=== PATIENT | female | born 1970 | race American Indian/Alaskan Native ===

== ENCOUNTER 2018-05-24 14:58 | Inpatient (IN) | payer MEDICAID, MEDICARE ==
--- NOTE | 2018-05-24 15:08 | Emergency Department Report ---
ED Neuro Deficit HPI - General Chief Complaint: Neuro Symptoms/Deficit Stated Complaint: STROKE Time Seen by Provider: 05/24/18 15:07 Source: patient, EMS (verbal report received from EMS.ems notes not available at time of chart dictation), RN notes reviewed Mode of arrival: Stretcher Limitations: Physical Limitation - History of Present Illness Initial Comments: This is a 47-year-old female. The patient is not known to this provider previously. The patient is brought to the hospital by emergency medical services as a possible code stroke. Patient's last known well time is 2:00 PM. Stroke symptoms include left arm weakness, left leg weakness, and left-sided numbness. Symptoms painless, constant, do not radiate anywhere, and do not have exacerbating or relieving factors. The patient reports that she is not and initially reported that she was not sure if she took systemic anticoagulation, and after some time, indicated that she is quite certain that she only takes aspirin, but otherwise, no obvious or other systemic anticoagulants. The patient denied contraindications to thrombolysis. The patient was admitted to another hospital last week, [facility], and reportedly had a negative MRI. Upon arrival to the emergency room, patient is found to have left arm weakness, left leg weakness, and decreased sensation to light touch, NIH score of 5. Code stroke called overhead, and CT scan of the brain was interpreted as negative for bleed. Patient interviewed by telephone neurology stroke specialist, Dr. Thomas Mendez. He independently was able to acquire the aforementioned [facility] MRI interpretation. He agreed with the administration of tPA to this patient. The risks and benefits of this medication were described to the patient, including the potential for a life-threatening bleed. However, the patient gave informed consent for TPA. A CT scan of the brain and neck to exclude large vessel occlusion was obtained, and both CT scans were negative for significant occlusive arterial disease. Case was discussed with critical care physician, Dr. Benedict, who agreed with placement into the intensive care unit. Case was discussed with the Hospital physician, Dr. Gann, who has accepted the patient to the medical service. Status post TPA, patient's neurologic examination is improved, still has some weakness in the arm and leg, still has some decreased sensation to light touch, but her NIH score improved to 3, from an original value of 5. -: Sudden (2:00 PM) Location: left arm, left leg Presenting Symptoms: Present: Weak/Paralyzed One Side. Absent: Sudden, Severe Headache, Blurred/Loss of Vision, Facial Droop/Numbness, Unable to Speak Clearly, Altered Mental Status History of same: Yes Place: home Quality: weak, numb Improves With: none Worsens With: none On Anticoagulants: Yes (aspirin) Context: sudden onset ED Review of Systems ROS: Stated complaint: STROKE Other details as noted in HPI Constitutional: malaise. denies: fever Eyes: denies: vision change ENT: denies: epistaxis Respiratory: denies: cough Cardiovascular: denies: chest pain Gastrointestinal: denies: abdominal pain, nausea, vomiting, hematemesis, melena, hematochezia Genitourinary: denies: urgency, dysuria Musculoskeletal: denies: back pain Neurological: weakness, numbness Psychiatric: denies: anxiety ED Neuro Physical Exam - General General appearance: alert, in no apparent distress Suspected Stroke: Yes - Head Head exam: Present: atraumatic, normocephalic - Eye Eye exam: Present: normal appearance, EOMI. Absent: nystagmus - ENT ENT exam: Present: normal exam, normal orophraynx, mucous membranes moist, normal external ear exam - Neck Neck exam: Present: normal inspection, full ROM. Absent: tenderness, meningismus - Respiratory Respiratory exam: Present: normal lung sounds bilaterally. Absent: respiratory distress, wheezes, rales, rhonchi, stridor, chest wall tenderness, accessory muscle use, decreased breath sounds, prolonged expiratory - Cardiovascular Cardiovascular Exam: Present: regular rate, normal rhythm, normal heart sounds. Absent: bradycardia, tachycardia, irregular rhythm, systolic murmur, diastolic murmur, rubs, gallop - GI/Abdominal GI/Abdominal exam: Present: soft. Absent: distended, tenderness, guarding, rebound, rigid, pulsatile mass - Extremities Exam Extremities exam: Present: normal inspection, other (2+ pulses noted in the bilateral upper, lower extremities. Compartments soft. No long bony tenderness. The pelvis is stable.). Absent: full ROM, pedal edema, calf tenderness - Back Exam Back exam: Present: normal inspection - Neurological Exam Neurological exam: Present: alert, oriented X3, CN II-XII intact, motor sensory deficit (decreased sensation to light touch left arm, left leg. 3 out of 5 strength left arm, left leg.) - NIHSS Assessment Interval: Baseline 1a. Level of Consciousness: alert/keenly responsive 1b. LOC Questions: answers both correctly 1c. LOC Commands: performs tasks correctly 2. Best Gaze: normal 3. Visual: no visual loss 4. Facial Palsy: normal symmetrical movement 5b. Motor Arm Right: no drift 5a. Motor Arm Left: some gravity effort 6a. Motor Leg Left: some gravity effort 6b. Motor Leg Right: no drift 7. Limb Ataxia: absent 8. Sensory: mild/moderate sensory loss 9. Best Language: no aphasia 10. Dysarthria: normal 11. Extinction/Inattention: no abnormality Total Score: 5 Stroke Severity: Moderate Stroke - Psychiatric Psychiatric exam: Present: normal affect, normal mood - Skin Skin exam: Present: warm, dry, intact, normal color. Absent: rash ED Course Vital Signs 05/24/18 05/24/18 05/24/18 15:21 15:30 15:45 Pulse Rate 86 93 H Respiratory 17 15 22 Rate Blood Pressure 157/92 162/102 O2 Sat by Pulse 100 100 Oximetry 05/24/18 05/24/18 05/24/18 16:00 16:15 16:30 Pulse Rate 89 93 H 91 H Respiratory 13 21 11 L Rate Blood Pressure 153/94 153/94 153/94 O2 Sat by Pulse 100 100 100 Oximetry 05/24/18 05/24/18 16:55 17:01 Pulse Rate 95 H 94 H Respiratory 22 21 Rate Blood Pressure 185/88 196/91 O2 Sat by Pulse 100 100 Oximetry - Lab Data Result diagrams: 05/24/18 15:21 05/24/18 15:21 Lab Results 05/24/18 05/24/18 05/24/18 Range/Units 15:21 15:21 15:21 WBC 6.1 (4.5-11.0) K/mm3 RBC 4.48 (3.65-5.03) M/mm3 Hgb 10.1 (10.1-14.3) gm/dl Hct 31.4 (30.3-42.9) % MCV 70 L (79-97) fl MCH 23 L (28-32) pg MCHC 32 (30-34) % RDW 15.9 H (13.2-15.2) % Plt Count 436 (140-440) K/mm3 Lymph % (Auto) 36.8 H (13.4-35.0) % [place] % (Auto) 6.9 (0.0-7.3) % Eos % (Auto) 2.5 (0.0-4.3) % Baso % (Auto) 1.2 (0.0-1.8) % Lymph # 2.2 (1.2-5.4) K/mm3 [place] # 0.4 (0.0-0.8) K/mm3 Eos # 0.2 (0.0-0.4) K/mm3 Baso # 0.1 (0.0-0.1) K/mm3 Seg Neutrophils % 52.6 (40.0-70.0) % Seg Neutrophils # 3.2 (1.8-7.7) K/mm3 PT 13.9 (12.2-14.9) Sec. INR 1.01 (0.87-1.13) APTT 29.1 (24.2-36.6) Sec. Thrombin Time 16.7 (15.1-19.6) Sec. Sodium 138 (137-145) mmol/L Potassium 3.9 (3.6-5.0) mmol/L Chloride 101.2 (98-107) mmol/L Carbon Dioxide 25 (22-30) mmol/L Anion Gap 16 mmol/L BUN 24 H (7-17) mg/dL Creatinine 0.9 (0.7-1.2) mg/dL Estimated GFR > 60 ml/min BUN/Creatinine Ratio 27 % Glucose 107 H (65-100) mg/dL Calcium 9.2 (8.4-10.2) mg/dL Total Bilirubin 0.20 (0.1-1.2) mg/dL AST 9 (5-40) units/L ALT 9 (7-56) units/L Alkaline Phosphatase 79 (35-129) units/L Total Creatine Kinase 42 (30-135) units/L CK-MB (CK-2) 1.4 (0.0-4.0) ng/mL CK-MB (CK-2) Rel Index 3.3 (0-4) Troponin T < 0.010 (0.00-0.029) ng/mL Total Protein 7.0 (6.3-8.2) g/dL Albumin 4.2 (3.9-5) g/dL Albumin/Globulin Ratio 1.5 % - EKG Data -: EKG Interpreted by Me EKG shows normal: sinus rhythm Rate: normal When compared to previous EKG there are: previous EKG unavailable 05/24/18 18:52 Sinus, 91 bpm, normal axis, QTC prolonged, high left ventricular voltage, early repolarization, not having chest pain, not consistent with ST elevation myocardial infarction. - Radiology Data Radiology results: report reviewed, image reviewed CT scan of the brain is negative for acute disease. Angiogram of the head and neck negative for acute disease. X-ray of the chest shows hypoinflation of the lungs. Prominence of interstitial markings are appreciated. Does not endorse symptoms currently that are consistent with pneumonia. - Differential Diagnosis stroke, atypical seizure - Core Measures Measure Exclusions: not indicated - Thrombolytic Inclusion/Exclusion Thrombolytic Inclusion Criteria: Ischemic Stroke Onset< 3h, NIH Stroke Scale Deficit, Negative CT Scan for ICH, Age 18 or Older, Glucose of 50-400mg/dl Critical Care Time: Yes Critical care time in (mins) excluding proc time.: 60 Critical care attestation.: If time is entered above; I have spent that time in minutes in the direct care of this critically ill patient, excluding procedure time. ED Disposition Clinical Impression: CVA (cerebral vascular accident) Qualifiers: CVA mechanism: other Qualified Code(s): I63.89 - Other cerebral infarction Disposition: -09 OP ADMIT IP TO THIS HOSP Is pt being admited?: Yes Condition: Critical Referrals: PRIMARY CARE, [Primary Care Provider] - 3-5 Days
[2018-05-24 15:34] LABS: Basophils # (Auto) 0.1 K/mm3 (0.0-0.1); Basophils % (Auto) 1.2 % (0.0-1.8); Eosinophils # (Auto) 0.2 K/mm3 (0.0-0.4); Eosinophils % (Auto) 2.5 % (0.0-4.3); Hematocrit 31.4 % (30.3-42.9); Hemoglobin 10.1 gm/dl (10.1-14.3); Lymphocytes # (Auto) 2.2 K/mm3 (1.2-5.4); Lymphocytes % (Auto) 36.8 % (13.4-35.0); Mean Corpuscular HGB Conc 32 % (30-34); Mean Corpuscular Volume 70 fl (79-97); Monocytes # (Auto) 0.4 K/mm3 (0.0-0.8); Monocytes % (Auto) 6.9 % (0.0-7.3); Platelet Count 436 K/mm3 (140-440); Red Blood Count 4.48 M/mm3 (3.65-5.03); Red Cell Distribution Width 15.9 % (13.2-15.2)
[2018-05-24] MEDS ORDERED: NACL 0.9% IV ONE (15:34)
[2018-05-24] MEDS ORDERED: ACTIVASE IV ONE ×2 (15:34)
[2018-05-24 15:47] LABS: Creatine Kinase MB 1.4 ng/mL (0.0-4.0)
[2018-05-24 15:48] LABS: Alanine Aminotransferase 9 units/L (7-56); Albumin 4.2 g/dL (3.9-5); BUN/Creatinine Ratio 27; Blood Urea Nitrogen 24 mg/dL (7-17); Calcium 9.2 mg/dL (8.4-10.2); Hemolysis Index 3
[2018-05-24 15:51] LABS: INR 1.01 (0.87-1.13)
[2018-05-24 15:52] LABS: Partial Thromboplastin Time 29.1 Sec. (24.2-36.6); Thrombin Time 16.7 Sec. (15.1-19.6)
--- NOTE | 2018-05-24 19:55 | Cat Scan Report ---
PROCEDURE: CT HEAD/BRAIN WO CON TECHNIQUE: Computerized tomography of the head was performed without contrast material. HISTORY: Stroke symptoms COMPARISONS: None . FINDINGS: No CT evidence of intracranial mass, hemorrhage, acute territorial infarction, or hydrocephalus. The intracranial arteries are symmetric in density. Calvarium is intact. The visualized paranasal sinuses and mastoids are aerated. IMPRESSION: No CT evidence of acute abnormality . This document is electronically signed by Azucena Benedict MD., May 24 2018 03:26:39 PM ET
--- NOTE | 2018-05-24 21:40 | XRay Report ---
PROCEDURE: XR CHEST 1V AP TECHNIQUE: Chest radiograph single view. HISTORY: cva COMPARISONS: None . FINDINGS: There is bilateral hypoinflation with crowding of the bronchovascular structures. There is prominence of the interstitial markings bilaterally, acute versus chronic. There appear to be small patchy areas of pulmonary consolidation in both lungs. Atelectasis versus in filtrates. The cardiac silhouette is enlarged. There is prominence of pulmonary venous vasculature is suggestive of pulmonary venous congestion. The thoracic aorta and bony structures are unremarkable. IMPRESSION: 1. Hypoinflation. 2. Prominence of the interstitial markings, acute versus chronic, and the appearance of patchy areas of pulmonary consolidation, atelectasis versus infiltrates, both lung bases. 3. Enlarged cardiac silhouette. PA and lateral views of the chest may be helpful for further evaluation. This document is electronically signed by Kelley Gómez MD., May 24 2018 04:41:27 PM ET
--- NOTE | 2018-05-24 23:06 | Cat Scan Report ---
PROCEDURE: CT ANGIO HEAD TECHNIQUE: Computerized tomographic angiography of the head was performed after the IV injection of iodinated nonionic contrast including image processing. The image data was postprocessed using 2-dim ensional multiplanar reformatted (MPR) and 3-dimensional (MIP and/or volume rendered) techniques. HISTORY: stroke sx COMPARISONS: Noncontrast head CT also performed today and CT angiogram neck also performed today. FINDINGS: There is normal enhancement of the major intracranial arteries without evidence of occlusion, hemodyn amically significant stenosis or aneurysm. There is atherosclerotic vascular calcification of the internal carotid arteries bilaterally at the s kull base. There is normal enhancement of the major intracranial venous structures. IMPRESSION: 1. No evidence of occlusion, hemodynamically significant stenosis or aneurysm of the major intracrani al arteries. This document is electronically signed by Kelley Gómez MD., May 24 2018 05:43:56 PM ET
--- NOTE | 2018-05-24 23:19 | Cat Scan Report ---
PROCEDURE: CT ANGIO NECK TECHNIQUE: Computerized tomographic angiography of the neck was performed after the IV injection of iodinated nonionic contrast including image processing. The image data was postprocessed using 2-dime nsional multiplanar reformatted (MPR) and 3-dimensional (MIP and/or volume rendered) techniques. HISTORY: stroke sx COMPARISONS: CT angiogram head also performed today . Note: Assessment of carotid artery stenosis is based on measurement of the distal internal carotid a rtery diameter as the denominator for stenosis calculations and the [place] Symptomatic Caroti d Endarterectomy Trial (NASCET) stenosis criteria. FINDINGS: There is normal enhancement of the cervical carotid and vertebral arteries without evidence of occlus ion, stenosis, dissection or aneurysm. The internal carotid arteries are tortuous, right greater than left. There is slight right vertebral artery dominance. The cervical soft tissues are unremarkable. The bony structures are notable a large bony defect involving the body of the mandible on the left wi th smooth margins, loss of the buccal cortex in this region and the appearance of an "floating tooth" . This may represent a large odontogenic cystic structure or marked periodontal disease. IMPRESSION: 1. No evidence of occlusion, stenosis, dissection or aneurysm of the cervical carotid and vertebral a rteries. 2. Tortuosity internal carotid arteries. 3. Large bony defect involving the body of the mandible on the left with loss of the buccal cortex in this region. This may represent an odontogenic cystic structure or marked periodontal disease. Referral to oral surgery would be helpful for further evaluation. This document is electronically signed by Kelley Gómez MD., May 24 2018 05:53:02 PM ET
[2018-05-25] MEDS ORDERED: SODIUM CHLORIDE FLUSH SYRINGE 10 ML IV PRN (00:07)
[2018-05-25] MEDS ORDERED: ZOFRAN IV PRN (00:07)
[2018-05-25] MEDS ORDERED: TYLENOL PO PRN (00:07)
[2018-05-25] MEDS ORDERED: DILAUDID IV PRN (00:09)
[2018-05-25] MEDS ORDERED: SODIUM CHLORIDE FLUSH SYRINGE 10 ML INJ PRN (00:11)
[2018-05-25] MEDS ORDERED: NACL 0.9% 1000 ML 1,000 ML IV SCH (01:00)
[2018-05-25] MEDS ORDERED: NACL 0.9% 1000 ML 1,000 ML ONE (07:00)
--- NOTE | 2018-05-25 07:15 | History and Physical Report ---
History of Present Illness Date of examination: 05/24/18 Date of admission: 05/24/18 19:07 Chief complaint: L sided weakness since 1 pm History of present illness: 47-year-old female brought to the hospital by emergency medical services as a possible code stroke.Patient's last known well time is 2:00 PM. Stroke symptoms include left arm weakness, left leg weakness, and left-sided numbness. Symptoms painless, constant, do not radiate anywhere, and do not have exacerbating or relieving factors. The patient reports no contraindications to thrombolysis. The patient was admitted to another hospital last week, [facility], and reportedly had a negative MRI for TIA.Had l sided numbness Upon arrival to the emergency room, patient is found to have left arm weakness, left leg weakness, and decreased sensation to light touch, NIH score of 5. After consultation with Tele neuro TPA was given PMH HTN' Family History Htn Social History Non smoker Surgical History N/a Review of Systems ROS: Stated complaint: STROKE Other details as noted in HPI Constitutional: malaise. denies: fever Eyes: denies: vision change ENT: denies: epistaxis Respiratory: denies: cough Cardiovascular: denies: chest pain Gastrointestinal: denies: abdominal pain, nausea, vomiting, hematemesis, melena, hematochezia Genitourinary: denies: urgency, dysuria Musculoskeletal: denies: back pain Neurological: weakness, numbness Psychiatric: denies: anxiety Medications and Allergies Allergies Allergy/AdvReac Type Severity Reaction Status Date / Time No Known Allergies Allergy Verified 05/25/18 00:36 Active Meds: Active Medications Acetaminophen (Tylenol) 650 mg PO Q4H PRN PRN Reason: Pain MILD(1-3)/Fever >100.5/ACOSTA Famotidine (Pepcid) 20 mg IV BID MINAL Hydromorphone HCl (Dilaudid) 0.5 mg IV Q3H PRN PRN Reason: Pain , Severe (7-10) Sodium Chloride (Nacl 0.9% 1000 Ml) 1,000 mls @ 75 mls/hr IV DIRECT MINAL Stop: 05/26/18 01:00 Last Admin: 05/25/18 06:45 Dose: 75 mls/hr Documented by: Ondansetron HCl (Zofran) 4 mg IV Q8H PRN PRN Reason: Nausea And Vomiting Oxycodone/Acetaminophen (Percocet 5/325) 1 tab PO Q6H PRN PRN Reason: Pain, Moderate (4-6) Sodium Chloride (Sodium Chloride Flush Syringe 10 Ml) 10 ml IV BID MINAL Sodium Chloride (Sodium Chloride Flush Syringe 10 Ml) 10 ml IV PRN PRN PRN Reason: LINE FLUSH Exam - Constitutional Vitals: Temp Pulse Resp BP Pulse Ox 98.0 F 100 H 11 L 138/83 100 05/25/18 05:00 05/25/18 07:00 05/25/18 07:00 05/25/18 07:00 05/25/18 07:00 General appearance: Present: no acute distress, well-nourished - EENT Eyes: Present: PERRL ENT: hearing intact, clear oral mucosa - Neck Neck: Present: supple, normal ROM - Respiratory Respiratory effort: normal Respiratory: bilateral: CTA - Cardiovascular Heart rate: 78 Rhythm: regular Heart Sounds: Present: S1 & S2. Absent: rub, click - Extremities Extremities: no ischemia, pulses intact, pulses symmetrical, No edema, abnormal Peripheral Pulses: within normal limits - Abdominal General gastrointestinal: Present: soft, non-tender, non-distended, normal bowel sounds Female genitourinary: Present: normal - Rectal Rectal Exam: deferred - Integumentary Integumentary: Present: clear, warm, dry - Musculoskeletal Musculoskeletal: left sided weakness (3/5 power in both LE and UE-Improving afer TPA) - Psychiatric Psychiatric: appropriate mood/affect, intact judgment & insight - Neurologic Neurologic: CNII-XII intact, focal deficits (L Facial palsy), moves all extremities Results - Labs CBC & Chem 7: 05/24/18 15:21 05/24/18 15:21 Labs: Laboratory Last Values WBC 6.1 K/mm3 (4.5-11.0) 05/24/18 15:21 RBC 4.48 M/mm3 (3.65-5.03) 05/24/18 15:21 Hgb 10.1 gm/dl (10.1-14.3) 05/24/18 15:21 Hct 31.4 % (30.3-42.9) 05/24/18 15:21 MCV 70 fl (79-97) L 05/24/18 15:21 MCH 23 pg (28-32) L 05/24/18 15:21 MCHC 32 % (30-34) 05/24/18 15:21 RDW 15.9 % (13.2-15.2) H 05/24/18 15:21 Plt Count 436 K/mm3 (140-440) 05/24/18 15:21 Lymph % (Auto) 36.8 % (13.4-35.0) H 05/24/18 15:21 [place] % (Auto) 6.9 % (0.0-7.3) 05/24/18 15:21 Eos % (Auto) 2.5 % (0.0-4.3) 05/24/18 15:21 Baso % (Auto) 1.2 % (0.0-1.8) 05/24/18 15:21 Lymph # 2.2 K/mm3 (1.2-5.4) 05/24/18 15:21 [place] # 0.4 K/mm3 (0.0-0.8) 05/24/18 15:21 Eos # 0.2 K/mm3 (0.0-0.4) 05/24/18 15:21 Baso # 0.1 K/mm3 (0.0-0.1) 05/24/18 15:21 Seg Neutrophils % 52.6 % (40.0-70.0) 05/24/18 15:21 Seg Neutrophils # 3.2 K/mm3 (1.8-7.7) 05/24/18 15:21 PT 13.9 Sec. (12.2-14.9) 05/24/18 15:21 INR 1.01 (0.87-1.13) 05/24/18 15:21 APTT 29.1 Sec. (24.2-36.6) 05/24/18 15:21 Thrombin Time 16.7 Sec. (15.1-19.6) 05/24/18 15:21 Sodium 138 mmol/L (137-145) 05/24/18 15:21 Potassium 3.9 mmol/L (3.6-5.0) 05/24/18 15:21 Chloride 101.2 mmol/L (98-107) 05/24/18 15:21 Carbon Dioxide 25 mmol/L (22-30) 05/24/18 15:21 Anion Gap 16 mmol/L 05/24/18 15:21 BUN 24 mg/dL (7-17) H 05/24/18 15:21 Creatinine 0.9 mg/dL (0.7-1.2) 05/24/18 15:21 Estimated GFR > 60 ml/min 05/24/18 15:21 BUN/Creatinine Ratio 27 % 05/24/18 15:21 Glucose 107 mg/dL (65-100) H 05/24/18 15:21 Calcium 9.2 mg/dL (8.4-10.2) 05/24/18 15:21 Total Bilirubin 0.20 mg/dL (0.1-1.2) 05/24/18 15:21 AST 9 units/L (5-40) 05/24/18 15:21 ALT 9 units/L (7-56) 05/24/18 15:21 Alkaline Phosphatase 79 units/L (35-129) 05/24/18 15:21 Total Creatine Kinase 42 units/L (30-135) 05/24/18 15:21 CK-MB (CK-2) 1.4 ng/mL (0.0-4.0) 05/24/18 15:21 CK-MB (CK-2) Rel Index 3.3 (0-4) 05/24/18 15:21 Troponin T < 0.010 ng/mL (0.00-0.029) 05/24/18 15:21 Total Protein 7.0 g/dL (6.3-8.2) 05/24/18 15:21 Albumin 4.2 g/dL (3.9-5) 05/24/18 15:21 Albumin/Globulin Ratio 1.5 % 05/24/18 15:21 - Imaging and Cardiology EKG: report reviewed CT Scan - head: report reviewed Assessment and Plan Advance Directives: Yes (Full code) VTE prophylaxis?: Chemical Plan of care discussed with patient/family: Yes - Patient Problems (1) CVA (cerebral vascular accident) Current Visit: Yes Status: Acute Qualifiers: CVA mechanism: other Qualified Code(s): I63.89 - Other cerebral infarction Plan to address problem: CVA w/u S/p TPA MRI/MRA and ECHO ordered CDS ordered Neuro consult ordered (2) HTN (hypertension) Current Visit: Yes Status: Chronic Qualifiers: Hypertension type: essential hypertension Qualified Code(s): I10 - Essential (primary) hypertension Plan to address problem: Cont antihypertensives (3) DVT prophylaxis Current Visit: Yes Status: Acute Plan to address problem: On Lovenox from tomorrow
[2018-05-25] MEDS ORDERED: PEPCID IV ONE (10:37)
[2018-05-25] MEDS: PEPCID IV SCH (10:38)
[2018-05-25] MEDS: SODIUM CHLORIDE FLUSH SYRINGE 10 ML IV SCH (10:38)
--- NOTE | 2018-05-25 10:48 | Vascular Lab Report ---
PROCEDURE: VL CAROTID DUPLEX BILAT TECHNIQUE: Duplex Doppler ultrasound of the common, internal and external carotid arteries and the v ertebral arteries was performed bilaterally. [place] scale imaging, velocity spectral waveform analysis, and color flow Doppler were employed. HISTORY: stroke COMPARISONS: None . Note: Measurement of carotid stenosis is based on flow velocity values that correlate with the [place] Symptomatic Carotid Endarterectomy Trial (NASCET) based stenosis criteria using the internal carotid artery diameter as the denominator for stenosis calculation. FINDINGS: RIGHT carotid artery: Velocities: ICA PSV: 79.1 cm/sec ICA End diastolic: 34.8 cm/sec CCA PSV: 121 cm/sec IC/CC ratio: 0.62 Plaque/color flow: Mild heterogeneous plaque without significant spectral broadening or abnormal col or flow . RIGHT vertebral artery: Antegrade systolic and diastolic flow LEFT carotid artery: Velocities: ICA PSV: 99.8 cm/sec ICA End diastolic: 28.2 cm/sec CCA PSV: 107.3 cm/sec IC/CC rati o: 0.93 Plaque/color flow: Mild heterogeneous plaque without significant spectral broadening or abnormal col or flow . LEFT vertebral artery: Antegrade systolic and diastolic flow IMPRESSION: 1. RIGHT carotid: No hemodynamically significant (less than 50 percent) internal carotid artery baron nosis. 2. LEFT carotid: No hemodynamically significant (less than 50 percent) internal carotid artery sten osis. 3. Vertebral arteries: Bilaterally antegrade. This document is electronically signed by Mary Soriano MD., May 25 2018 10:46:18 AM ET
--- NOTE | 2018-05-25 11:28 | Progress Note ---
Subjective Date of service: 05/25/18 Interval history: see dictation on this patient she is stable symptoms of TIA and Stroke are better patient has hx of being on venlafaxine ? Objective - Vital Sign Vital Signs - 12hr 05/24/18 05/24/18 05/25/18 23:30 23:45 00:00 Temperature Pulse Rate 106 H 100 H 102 H Respiratory 26 H 15 16 Rate Blood Pressure 142/89 149/85 138/85 Blood Pressure [Left] O2 Sat by Pulse 99 95 97 Oximetry 05/25/18 05/25/18 05/25/18 00:15 00:30 00:45 Temperature Pulse Rate 102 H 104 H 108 H Respiratory 12 19 16 Rate Blood Pressure 143/90 147/88 139/87 Blood Pressure [Left] O2 Sat by Pulse 98 99 99 Oximetry 05/25/18 05/25/18 05/25/18 01:00 01:15 01:30 Temperature 98.0 F Pulse Rate 111 H 103 H 102 H Respiratory 16 15 15 Rate Blood Pressure 141/86 139/88 137/85 Blood Pressure [Left] O2 Sat by Pulse 99 99 100 Oximetry 05/25/18 05/25/18 05/25/18 01:45 02:00 02:15 Temperature Pulse Rate 106 H 102 H 103 H Respiratory 17 12 15 Rate Blood Pressure 139/88 130/86 131/75 Blood Pressure [Left] O2 Sat by Pulse 99 97 99 Oximetry 05/25/18 05/25/18 05/25/18 02:30 02:45 03:00 Temperature 98.4 F Pulse Rate 103 H 105 H Respiratory 17 15 Rate Blood Pressure 121/73 118/82 Blood Pressure [Left] O2 Sat by Pulse 99 99 Oximetry 05/25/18 05/25/18 05/25/18 03:01 03:15 03:30 Temperature Pulse Rate 99 H 100 H 99 H Respiratory 13 13 16 Rate Blood Pressure 120/75 120/75 124/82 Blood Pressure [Left] O2 Sat by Pulse 99 97 98 Oximetry 05/25/18 05/25/18 05/25/18 03:45 04:00 04:15 Temperature Pulse Rate 101 H 101 H 102 H Respiratory 16 18 15 Rate Blood Pressure 129/85 132/82 133/83 Blood Pressure [Left] O2 Sat by Pulse 97 98 Oximetry 05/25/18 05/25/18 05/25/18 04:30 04:45 05:00 Temperature 98.0 F Pulse Rate 98 H 99 H Respiratory 15 11 L Rate Blood Pressure 128/86 141/88 Blood Pressure [Left] O2 Sat by Pulse 99 99 Oximetry 05/25/18 05/25/18 05/25/18 05:01 05:15 05:30 Temperature Pulse Rate 95 H 93 H 103 H Respiratory 14 12 18 Rate Blood Pressure 159/87 149/86 131/82 Blood Pressure [Left] O2 Sat by Pulse 98 100 Oximetry 05/25/18 05/25/18 05/25/18 05:45 06:00 06:15 Temperature Pulse Rate 97 H 99 H 99 H Respiratory 16 15 16 Rate Blood Pressure 143/84 137/84 143/83 Blood Pressure [Left] O2 Sat by Pulse 99 99 Oximetry 05/25/18 05/25/18 05/25/18 06:30 06:45 07:00 Temperature 98.1 F Pulse Rate 97 H 101 H 100 H Respiratory 14 18 11 L Rate Blood Pressure 130/83 130/83 138/83 Blood Pressure 138/83 [Left] O2 Sat by Pulse 100 99 100 Oximetry 05/25/18 05/25/18 09:00 11:00 Temperature 98.1 F 99.4 F Pulse Rate 95 H 116 H Respiratory 11 L 18 Rate Blood Pressure Blood Pressure 136/86 136/80 [Left] O2 Sat by Pulse 99 99 Oximetry - Laboratory Findings CBC and BMP: 05/24/18 15:21 05/24/18 15:21 Abnormal Lab Findings: Abnormal Labs 05/24/18 05/24/18 15:21 15:21 MCV 70 L MCH 23 L RDW 15.9 H Lymph % (Auto) 36.8 H BUN 24 H Glucose 107 H
--- NOTE | 2018-05-25 12:57 | Progress Note ---
Assessment and Plan Assessment and plan: --Acute CVA; status post TPA Neuro checks, continue TPA protocol Physical therapy occupational therapy speech therapy after 24 hours Aspirin, statin, Lovenox DVT prophylaxis after 24 hours of TPA Neuro workup is in progress. Workup so far: CT head without contrast; no acute abnormality noted CTA head; no occlusion or hemodynamically significant stenosis or aneurysm CTA neck; no occlusion stenosis dissection or aneurysm, tortuous internal carotids Large bony defect involving the body of the mandible on the left with loss of buccal cortex in this region, maybe odontogenic cyst/ periodontal disease, advised her to oral surgeon Carotid Doppler; no hemodynamically significant stenosis Echocardiogram; Chest x-ray; prominent interstitial markings acute versus chronic patchy pulmonary consolidation both lung bases Enlarged cardiac silhouette Patient had similar symptoms and was extensively evaluated recently At [facility], will request medical records --Hypertension; moderate control Maintain blood pressure support protocols, when necessary medications --History of manic depression; Patient follows with psych, requested to bring home medications Resume appropriate meds, psych consult --History of psychotic illness; psych consult Supportive care --DVT prophylaxis. SCDs Lovenox after 24 hours of TPA Physical therapy occupational therapy speech therapy when stable Follow neurology evaluation and recommendations Plan of care is reviewed with the patient her and the nurse Patient can be downgraded to telemetry after 24 hours of TPA administration, if Stable Critical care time 40 minutes History Interval history: 47-year-old female patient was admitted through emergency room with left-sided weakness, possible CVA, Patient received TPA, as recommended by tele neurologist currently on TPA protocol Awaiting ICU bed assignment. Patient seen and examined medical records reviewed Patient is alert and awake, not in acute distress , slightly agitated and psychotic, Wants to go home at the bedside Vital signs noted Hospitalist Physical - Constitutional Vitals: Temp Pulse Resp BP Pulse Ox 99.4 F 116 H 18 136/80 99 05/25/18 11:00 05/25/18 11:00 05/25/18 11:00 05/25/18 11:05/25/18 11:00 General appearance: Present: no acute distress, well-nourished, other (slightly agitated and wants to go home, and hallucinating at times) - EENT Eyes: Present: PERRL, EOM intact - Neck Neck: Present: supple, normal ROM - Respiratory Respiratory effort: normal Respiratory: negative: rales, rhonchi, wheezing - Cardiovascular Rhythm: regular Heart Sounds: Present: S1 & S2 - Extremities Extremities: no ischemia, No edema - Abdominal General gastrointestinal: soft, non-tender, non-distended, normal bowel sounds - Integumentary Integumentary: Present: clear, warm - Psychiatric Psychiatric: agitated, other ( psychotic with hallucinations at times) - Neurologic Neurologic: moves all extremities, other (Motor power 5 x 5 in all 4 extremities) Results - Labs CBC & Chem 7: 05/24/18 15:21 05/24/18 15:21 Labs: Laboratory Last Values WBC 6.1 K/mm3 (4.5-11.0) 05/24/18 15:21 RBC 4.48 M/mm3 (3.65-5.03) 05/24/18 15:21 Hgb 10.1 gm/dl (10.1-14.3) 05/24/18 15:21 Hct 31.4 % (30.3-42.9) 05/24/18 15:21 MCV 70 fl (79-97) L 05/24/18 15:21 MCH 23 pg (28-32) L 05/24/18 15:21 MCHC 32 % (30-34) 05/24/18 15:21 RDW 15.9 % (13.2-15.2) H 05/24/18 15:21 Plt Count 436 K/mm3 (140-440) 05/24/18 15:21 Lymph % (Auto) 36.8 % (13.4-35.0) H 05/24/18 15:21 [place] % (Auto) 6.9 % (0.0-7.3) 05/24/18 15:21 Eos % (Auto) 2.5 % (0.0-4.3) 05/24/18 15:21 Baso % (Auto) 1.2 % (0.0-1.8) 05/24/18 15:21 Lymph # 2.2 K/mm3 (1.2-5.4) 05/24/18 15:21 [place] # 0.4 K/mm3 (0.0-0.8) 05/24/18 15:21 Eos # 0.2 K/mm3 (0.0-0.4) 05/24/18 15:21 Baso # 0.1 K/mm3 (0.0-0.1) 05/24/18 15:21 Seg Neutrophils % 52.6 % (40.0-70.0) 05/24/18 15:21 Seg Neutrophils # 3.2 K/mm3 (1.8-7.7) 05/24/18 15:21 PT 13.9 Sec. (12.2-14.9) 05/24/18 15:21 INR 1.01 (0.87-1.13) 05/24/18 15:21 APTT 29.1 Sec. (24.2-36.6) 05/24/18 15:21 Thrombin Time 16.7 Sec. (15.1-19.6) 05/24/18 15:21 Sodium 138 mmol/L (137-145) 05/24/18 15:21 Potassium 3.9 mmol/L (3.6-5.0) 05/24/18 15:21 Chloride 101.2 mmol/L (98-107) 05/24/18 15:21 Carbon Dioxide 25 mmol/L (22-30) 05/24/18 15:21 Anion Gap 16 mmol/L 05/24/18 15:21 BUN 24 mg/dL (7-17) H 05/24/18 15:21 Creatinine 0.9 mg/dL (0.7-1.2) 05/24/18 15:21 Estimated GFR > 60 ml/min 05/24/18 15:21 BUN/Creatinine Ratio 27 % 05/24/18 15:21 Glucose 107 mg/dL (65-100) H 05/24/18 15:21 Calcium 9.2 mg/dL (8.4-10.2) 05/24/18 15:21 Total Bilirubin 0.20 mg/dL (0.1-1.2) 05/24/18 15:21 AST 9 units/L (5-40) 05/24/18 15:21 ALT 9 units/L (7-56) 05/24/18 15:21 Alkaline Phosphatase 79 units/L (35-129) 05/24/18 15:21 Total Creatine Kinase 42 units/L (30-135) 05/24/18 15:21 CK-MB (CK-2) 1.4 ng/mL (0.0-4.0) 05/24/18 15:21 CK-MB (CK-2) Rel Index 3.3 (0-4) 05/24/18 15:21 Troponin T < 0.010 ng/mL (0.00-0.029) 05/24/18 15:21 Total Protein 7.0 g/dL (6.3-8.2) 05/24/18 15:21 Albumin 4.2 g/dL (3.9-5) 05/24/18 15:21 Albumin/Globulin Ratio 1.5 % 05/24/18 15:21
--- NOTE | 2018-05-26 00:54 | Consultation ---
HISTORY OF PRESENT ILLNESS: This is a 47-year-old female who had sudden onset of left-sided weakness following an episode where she had a severe headache. She is admitted to the hospital after having initial diagnostic workup including a CT of the head and neck, which showed a large bony defect in the body of the mandible, which recommended cyst formation. Otherwise, no arterial lesions were present. Carotid arteries are negative. She had a CT scan of the head, showed mild sinus thickening. Maxillary sinuses were otherwise unremarkable. Ethmoids were normal. There is normal appearance to ventricular system, hoover-white matter normal. No evidence of any focal ischemic lesions are present. ____ in the midline, posterior fossa structures including cerebellum and 4th ventricle are normal. ____ to my review are unremarkable. Posterior pharynx does not reveal any specific changes. PHYSICAL EXAMINATION: VITAL SIGNS: Reveals blood pressure to be 113/80, pulse rate 80, respirations 18. She has a noticeable dystonia on movement with tardive dyskinesia type features. NECK: Supple. NEUROLOGIC: Ocular movements are full. 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 Motor tone is symmetrical. No motor or sensory findings are otherwise present. IMPRESSION: 1. Acute stroke. 2. Tardive dyskinesia. 3. Sinus disease as noted above. PLAN: Workup, CT, MRI, EEG. She does have carotid artery ultrasound and echocardiogram. At time of onset of the spell, she had left-sided weakness, which suggests a TIA. At present time, I do not find any weakness as a residual. I will continue to observe the patient. JOB# [id number] EVERARDO/NTS
[2018-05-26] MEDS: EFFEXOR XR PO SCH ×3 (01:55→21:27)
[2018-05-26] MEDS: SODIUM CHLORIDE FLUSH SYRINGE 10 ML IV SCH ×3 (02:28→21:28)
[2018-05-26] MEDS: PEPCID IV SCH (02:31)
[2018-05-26 05:22] LABS: Basophils % (Auto) 0.6 % (0.0-1.8); Eosinophils # (Auto) 0.2 K/mm3 (0.0-0.4); Eosinophils % (Auto) 2.5 % (0.0-4.3); Hematocrit 30.6 % (30.3-42.9); Hemoglobin 9.7 gm/dl (10.1-14.3); Lymphocytes # (Auto) 1.9 K/mm3 (1.2-5.4); Lymphocytes % (Auto) 26.8 % (13.4-35.0); Mean Corpuscular HGB Conc 32 % (30-34); Mean Corpuscular Volume 71 fl (79-97); Monocytes # (Auto) 0.4 K/mm3 (0.0-0.8); Monocytes % (Auto) 5.4 % (0.0-7.3); Platelet Count 429 K/mm3 (140-440); Red Blood Count 4.33 M/mm3 (3.65-5.03); Red Cell Distribution Width 15.9 % (13.2-15.2)
[2018-05-26 05:37] LABS: Alanine Aminotransferase 8 units/L (7-56); Albumin 3.8 g/dL (3.9-5); BUN/Creatinine Ratio 24; Blood Urea Nitrogen 19 mg/dL (7-17); Calcium 8.8 mg/dL (8.4-10.2); Chol/HDL Ratio 3.07 %; HDL Cholesterol 40 mg/dL (40-59); Hemolysis Index 4; LDL Cholesterol,Direct 67 mg/dL (50-130)
--- NOTE | 2018-05-26 08:21 | Progress Note ---
Subjective Date of service: 05/26/18 Interval history: see the dictated note MRI and EEG pending odd dystonia notes like TD doubt from acute stroke Objective - Vital Sign Vital Signs - 12hr 05/25/18 05/25/18 05/25/18 20:24 20:30 20:41 Temperature Pulse Rate 104 H 102 H 100 H Respiratory 23 25 H 19 Rate Blood Pressure 135/91 155/87 O2 Sat by Pulse 100 100 100 Oximetry 05/25/18 05/25/18 05/25/18 20:51 20:58 21:01 Temperature Pulse Rate 97 H 96 H Respiratory 21 20 17 Rate Blood Pressure 155/87 150/81 O2 Sat by Pulse 100 100 Oximetry 05/25/18 05/25/18 05/25/18 21:11 21:21 21:31 Temperature Pulse Rate 109 H 114 H 106 H Respiratory 29 H 26 H 21 Rate Blood Pressure 150/81 150/81 142/91 O2 Sat by Pulse 100 Oximetry 05/25/18 05/25/18 05/25/18 21:41 21:50 22:00 Temperature Pulse Rate 102 H 98 H Respiratory 29 H 22 Rate Blood Pressure 150/81 142/91 O2 Sat by Pulse 100 100 100 Oximetry 05/25/18 05/25/18 05/25/18 22:01 22:11 22:21 Temperature Pulse Rate 100 H 96 H 94 H Respiratory 19 23 21 Rate Blood Pressure 149/90 142/91 142/91 O2 Sat by Pulse 100 100 Oximetry 05/25/18 05/25/18 05/25/18 22:31 22:41 22:51 Temperature Pulse Rate 83 85 84 Respiratory 19 14 21 Rate Blood Pressure 130/43 149/90 149/90 O2 Sat by Pulse 100 94 100 Oximetry 05/25/18 05/25/18 05/25/18 23:01 23:07 23:11 Temperature 98.7 F Pulse Rate 87 111 H Respiratory 21 19 Rate Blood Pressure 149/90 130/43 O2 Sat by Pulse 100 Oximetry 05/25/18 05/25/18 05/25/18 23:21 23:31 23:41 Temperature Pulse Rate 102 H 91 H 90 Respiratory 29 H 16 16 Rate Blood Pressure 130/43 130/43 125/80 O2 Sat by Pulse 99 100 97 Oximetry 05/25/18 05/25/18 05/26/18 23:51 23:54 00:00 Temperature Pulse Rate 95 H 90 87 Respiratory 16 15 18 Rate Blood Pressure 125/80 125/80 121/78 O2 Sat by Pulse 100 100 100 Oximetry 05/26/18 05/26/18 05/26/18 00:09 00:11 00:21 Temperature Pulse Rate 87 89 105 H Respiratory 14 14 19 Rate Blood Pressure 121/78 109/57 109/57 O2 Sat by Pulse 98 98 100 Oximetry 05/26/18 05/26/18 05/26/18 00:31 00:41 00:51 Temperature Pulse Rate 92 H 85 99 H Respiratory 18 17 19 Rate Blood Pressure 127/66 127/66 127/66 O2 Sat by Pulse 100 99 100 Oximetry 05/26/18 05/26/18 05/26/18 01:01 01:11 01:21 Temperature Pulse Rate 86 83 84 Respiratory 16 15 14 Rate Blood Pressure 127/72 127/72 127/72 O2 Sat by Pulse 99 98 100 Oximetry 05/26/18 05/26/18 05/26/18 01:30 01:41 01:51 Temperature Pulse Rate 90 90 89 Respiratory 15 15 15 Rate Blood Pressure 116/69 116/69 116/69 O2 Sat by Pulse 99 99 100 Oximetry 05/26/18 05/26/18 05/26/18 02:00 03:01 03:21 Temperature 98.2 F Pulse Rate 92 H 103 H Respiratory 14 18 Rate Blood Pressure 109/71 109/71 O2 Sat by Pulse 100 85 Oximetry 05/26/18 05/26/18 05/26/18 04:00 04:01 05:01 Temperature Pulse Rate 110 H 106 H Respiratory 16 22 16 Rate Blood Pressure 163/73 126/75 O2 Sat by Pulse 99 98 Oximetry 05/26/18 05/26/18 06:01 07:52 Temperature Pulse Rate 94 H Respiratory 15 Rate Blood Pressure 104/60 O2 Sat by Pulse 99 99 Oximetry - Laboratory Findings CBC and BMP: 05/26/18 03:56 05/26/18 03:56 Abnormal Lab Findings: Abnormal Labs 05/24/18 05/24/18 05/25/18 15:21 15:21 17:52 Hgb MCV 70 L MCH 23 L RDW 15.9 H Lymph % (Auto) 36.8 H Potassium BUN 24 H Glucose 107 H POC Glucose 142 H Hemoglobin A1c Albumin 05/26/18 05/26/18 05/26/18 03:56 03:56 03:56 Hgb 9.7 L MCV 71 L MCH 23 L RDW 15.9 H Lymph % (Auto) Potassium 3.3 L BUN 19 H Glucose 216 H POC Glucose Hemoglobin A1c 8.1 H Albumin 3.8 L
--- NOTE | 2018-05-26 08:39 | Progress Note ---
Assessment and Plan Assessment and plan: --Hypokalemia: replenish with Kcl --Acute CVA; status post TPA Neuro checks, Physical therapy occupational therapy speech therapy after 24 hours Add Aspirin, statin, Lovenox DVT prophylaxis , Neuro workup is in progress. Workup so far: CT head without contrast; no acute abnormality noted CTA head; no occlusion or hemodynamically significant stenosis or aneurysm CTA neck; no occlusion stenosis dissection or aneurysm, tortuous internal carotids Large bony defect involving the body of the mandible on the left with loss of buccal cortex in this region, maybe odontogenic cyst/ periodontal disease, advised her to oral surgeon Carotid Doppler; no hemodynamically significant stenosis Echocardiogram;Global left ventricle systolic function is normal estimated ejection fraction, 55-60% abnormal left ventricle diastolic function abnormal left ventricle diastolic filling observed consistent with impaired relaxation No PFO noted Chest x-ray; prominent interstitial markings acute versus chronic patchy pulmonary consolidation both lung bases Enlarged cardiac silhouette MRI brain; MRA of brain; Patient had similar symptoms and was extensively evaluated recently At [facility], will request medical records --Hypertension; moderate control Maintain blood pressure support protocols, when necessary medications --History of manic depression; Patient follows with psych, requested to bring home medications Resume appropriate meds, psych consult --History of psychotic illness; psych consult Supportive care --DVT prophylaxis. SCDs Lovenox after 24 hours of TPA Physical therapy occupational therapy speech therapy when stable Follow neurology evaluation and recommendations Plan of care is reviewed with the patient and the nurse Patient can be transferred out of ICU to telemetry . Critical care time 35 minutes History Interval history: Patient seen and examined medical records reviewed Patient was initially admitted to telemetry, however last night patient was transferred to ICU For unknown reason, no new events reported by the nursing Patient is alert awake oriented 3 Not in acute distress Vital signs reviewed More than 24 hours after TPA We will start aspirin and Lovenox for DVT prophylaxis Neuro workup is in progress Hospitalist Physical - Constitutional Vitals: Temp Pulse Resp BP Pulse Ox 98.2 F 94 H 15 104/60 99 05/26/18 03:21 05/26/18 06:01 05/26/18 06:01 05/26/18 06:01 05/26/18 07:52 General appearance: Present: no acute distress, well-nourished, other (comfortable,) - EENT Eyes: Present: PERRL, EOM intact (perez) ENT: other (mild dyskinesia, probably secondary to psychiatric medications) - Neck Neck: Present: supple, normal ROM - Respiratory Respiratory effort: normal Respiratory: bilateral: diminished, negative: rales, rhonchi, wheezing - Cardiovascular Rhythm: regular Heart Sounds: Present: S1 & S2 - Extremities Extremities: no ischemia, No edema - Abdominal General gastrointestinal: soft, non-tender, non-distended, normal bowel sounds - Integumentary Integumentary: Present: clear, warm - Psychiatric Psychiatric: appropriate mood/affect, cooperative - Neurologic Neurologic: moves all extremities Results - Labs CBC & Chem 7: 05/26/18 03:56 05/26/18 03:56 Labs: Laboratory Last Values WBC 7.1 K/mm3 (4.5-11.0) 05/26/18 03:56 RBC 4.33 M/mm3 (3.65-5.03) 05/26/18 03:56 Hgb 9.7 gm/dl (10.1-14.3) L 05/26/18 03:56 Hct 30.6 % (30.3-42.9) 05/26/18 03:56 MCV 71 fl (79-97) L 05/26/18 03:56 MCH 23 pg (28-32) L 05/26/18 03:56 MCHC 32 % (30-34) 05/26/18 03:56 RDW 15.9 % (13.2-15.2) H 05/26/18 03:56 Plt Count 429 K/mm3 (140-440) 05/26/18 03:56 Lymph % (Auto) 26.8 % (13.4-35.0) 05/26/18 03:56 [place] % (Auto) 5.4 % (0.0-7.3) 05/26/18 03:56 Eos % (Auto) 2.5 % (0.0-4.3) 05/26/18 03:56 Baso % (Auto) 0.6 % (0.0-1.8) 05/26/18 03:56 Lymph # 1.9 K/mm3 (1.2-5.4) 05/26/18 03:56 [place] # 0.4 K/mm3 (0.0-0.8) 05/26/18 03:56 Eos # 0.2 K/mm3 (0.0-0.4) 05/26/18 03:56 Baso # 0.0 K/mm3 (0.0-0.1) 05/26/18 03:56 Seg Neutrophils % 64.7 % (40.0-70.0) 05/26/18 03:56 Seg Neutrophils # 4.6 K/mm3 (1.8-7.7) 05/26/18 03:56 PT 13.9 Sec. (12.2-14.9) 05/24/18 15:21 INR 1.01 (0.87-1.13) 05/24/18 15:21 APTT 29.1 Sec. (24.2-36.6) 05/24/18 15:21 Thrombin Time 16.7 Sec. (15.1-19.6) 05/24/18 15:21 Sodium 137 mmol/L (137-145) 05/26/18 03:56 Potassium 3.3 mmol/L (3.6-5.0) L 05/26/18 03:56 Chloride 102.6 mmol/L (98-107) 05/26/18 03:56 Carbon Dioxide 22 mmol/L (22-30) 05/26/18 03:56 Anion Gap 16 mmol/L 05/26/18 03:56 BUN 19 mg/dL (7-17) H 05/26/18 03:56 Creatinine 0.8 mg/dL (0.7-1.2) 05/26/18 03:56 Estimated GFR > 60 ml/min 05/26/18 03:56 BUN/Creatinine Ratio 24 % 05/26/18 03:56 Glucose 216 mg/dL (65-100) H 05/26/18 03:56 POC Glucose 98 (70-105) 05/25/18 20:36 Hemoglobin A1c 8.1 % (4-6) H 05/26/18 03:56 Calcium 8.8 mg/dL (8.4-10.2) 05/26/18 03:56 Total Bilirubin 0.20 mg/dL (0.1-1.2) 05/26/18 03:56 AST 9 units/L (5-40) 05/26/18 03:56 ALT 8 units/L (7-56) 05/26/18 03:56 Alkaline Phosphatase 76 units/L (35-129) 05/26/18 03:56 Total Creatine Kinase 42 units/L (30-135) 05/24/18 15:21 CK-MB (CK-2) 1.4 ng/mL (0.0-4.0) 05/24/18 15:21 CK-MB (CK-2) Rel Index 3.3 (0-4) 05/24/18 15:21 Troponin T < 0.010 ng/mL (0.00-0.029) 05/24/18 15:21 Total Protein 6.4 g/dL (6.3-8.2) 05/26/18 03:56 Albumin 3.8 g/dL (3.9-5) L 05/26/18 03:56 Albumin/Globulin Ratio 1.5 % 05/26/18 03:56 Triglycerides 128 mg/dL (2-149) 05/26/18 03:56 Cholesterol 123 mg/dL (50-199) 05/26/18 03:56 LDL Cholesterol Direct 67 mg/dL (50-130) 05/26/18 03:56 HDL Cholesterol 40 mg/dL (40-59) 05/26/18 03:56 Cholesterol/HDL Ratio 3.07 % 05/26/18 03:56
[2018-05-26] MEDS ORDERED: BENZTROPINE MESYLATE 2 MG PO SCH (10:00)
[2018-05-26] MEDS ORDERED: FERROUS SULFATE 324 MG PO SCH (10:00)
[2018-05-26] MEDS ORDERED: K-DUR PO ONE (10:00)
[2018-05-26] MEDS ORDERED: VENLAFAXINE HCL 150 MG PO SCH (10:00)
[2018-05-26] MEDS: PEPCID PO SCH ×2 (10:08→21:28)
[2018-05-26] MEDS: FEOSOL PO SCH (10:08)
[2018-05-26] MEDS: COGENTIN PO SCH (10:09)
[2018-05-26] MEDS: ECOTRIN PO SCH (11:08)
[2018-05-26] MEDS ORDERED: THIOTHIXENE 5 MG PO SCH (18:00)
[2018-05-26] MEDS ORDERED: LOVENOX SUB-Q SCH (22:00)
--- NOTE | 2018-05-27 07:36 | Magnetic Resonance Report ---
MRI OF THE BRAIN WITHOUT CONTRAST: HISTORY: Stroke PROCEDURE: Multiplanar, multisequence MR imaging of the brain without IV contrast was performed. FINDINGS: Compared to the CT head dated 05/24/18. The brain parenchyma signal intensity and its flower white interface are within normal limits on all sequences. No evidence for acute ischemia, hemorrhage or mass. No chronic infarct or extra-axial fluid collection. The midline structures are central. The basal cisterns are patent. Normal ventricular size. The orbital cavities and sella turcica demonstrate no abnormality. The visualized paranasal sinuses and mastoid air cells are well aerated. IMPRESSION: Unremarkable non-enhanced MRI of the brain.
--- NOTE | 2018-05-27 07:37 | Magnetic Resonance Report ---
MRA HEAD WITHOUT CONTRAST HISTORY: Stroke. [id number] imaging with MIP reformations of the [place] is submitted. The arteries appear widely patent and free of hemodynamically significant stenosis, aneurysm or dissection. Moderate bilateral posterior communicating arteries are identified. IMPRESSION: Unremarkable MRA head.
[2018-05-27] MEDS: PERCOCET 5/325 PO PRN ×2 (09:10→14:48)
[2018-05-27] MEDS: PEPCID PO SCH (09:59)
[2018-05-27] MEDS: ECOTRIN PO SCH (09:59)
[2018-05-27] MEDS: EFFEXOR XR PO SCH (09:59)
[2018-05-27] MEDS: FEOSOL PO SCH (09:59)
[2018-05-27] MEDS: SODIUM CHLORIDE FLUSH SYRINGE 10 ML IV SCH (10:02)
[2018-05-27 12:55] VITALS: BP 148/92
--- NOTE | 2018-05-27 13:08 | Discharge Summary ---
Providers - Providers Date of Admission: 05/24/18 19:07 Date of discharge: 05/27/18 Attending physician: KAY ARELLANO 05/24/18 Consult to Physician [CONS] Stat Comment: Consulting Provider: YAMILE MORRISON Physician Instructions: Reason For Exam: suspected stroke 05/25/18 Consult to Physician [CONS] Routine Comment: Consulting Provider: SANTHOSH VASQUEZ Physician Instructions: Reason For Exam: Acute CVA 05/25/18 00:11 Occupational Therapy Evaluate and Treat [CONS] Routine Comment: Reason For Exam: Neuro deficits Physical Therapy Evaluation and Treat [CONS] Routine Comment: Reason For Exam: Neuro deficits 05/25/18 13:46 psychiatry consult [Consult to Mental Health] [CONS] Routine Reason For Exam: acute psychosis/hallucinatios[h/o manic depression Place consult to:: solutions manager Notified:: yes 05/26/18 08:37 Speech Therapy Evaluation and Treat [CONS] Routine Reason For Exam: CVA Primary care physician: STOCK FITTER Hospitalization Reason for admission: Acute Lt sided weakness Condition: Fair Pertinent studies: CT head without contrast; no acute abnormality noted CTA head; no occlusion or hemodynamically significant stenosis or aneurysm CTA neck; no occlusion stenosis dissection or aneurysm, tortuous internal carotids Large bony defect involving the body of the mandible on the left with loss of buccal cortex in this region, maybe odontogenic cyst/ periodontal disease, advised her to oral surgeon Carotid Doppler; no hemodynamically significant stenosis Echocardiogram;Global left ventricle systolic function is normal estimated ejection fraction, 55-60% abnormal left ventricle diastolic function abnormal left ventricle diastolic filling observed consistent with impaired relaxation No PFO noted Chest x-ray; prominent interstitial markings acute versus chronic patchy pulmonary consolidation both lung bases Enlarged cardiac silhouette MRI brain;unremarkable MRA of brain; unremarkable Hospital course: 47-year-old female patient was admitted through emergency room with left-sided weakness, possible CVA, Patient received TPA, as recommended by tele neurologist, TPA pathway followed,admitted to ICU,evaluated by Neurologist Patient received PT,OT and ST. did not need any home health. Today patient is comfortable,no new complaints. Vital signs are stable,physical exam is unremarkable at discharge. 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 SCDs Lovenox after 24 hours of TPA Patient is stable at discharge Disposition: DC-01 TO HOME OR SELFCARE Time spent for discharge: 32 min Core Measure Documentation - Palliative Care Palliative Care/ Comfort Measures: Not Applicable - Core Measures Any of the following diagnoses?: stroke - Stroke Discharge Requirements Statin for LDL = or >70 mg/dl on DC: Yes Anticoag for atrial fib/atrial flutter: Not Applicable Antithrombotic for ischemic stroke: Yes Exam - Constitutional Vitals: Temp Pulse Resp BP Pulse Ox 98.3 F 94 H 18 148/92 98 05/27/18 12:54 05/27/18 12:54 05/27/18 12:54 05/27/18 12:54 05/27/18 12:54 General appearance: Present: no acute distress, well-nourished - EENT Eyes: Present: PERRL - Neck Neck: Present: supple, normal ROM - Respiratory Respiratory effort: normal Respiratory: negative: rales, rhonchi, wheezing - Cardiovascular Rhythm: regular Heart Sounds: Present: S1 & S2 - Extremities Extremities: no ischemia, No edema - Abdominal General gastrointestinal: Present: soft, non-tender, non-distended, normal bowel sounds - Integumentary Integumentary: Present: clear, warm - Musculoskeletal Musculoskeletal: strength equal bilaterally, generalized weakness - Psychiatric Psychiatric: appropriate mood/affect, cooperative - Neurologic Neurologic: CNII-XII intact, moves all extremities Plan Activity: advance as tolerated, fall precautions Diet: diabetic Additional Instructions: Advised to f/u private psychiatrist in 1 week Follow up with: JESSICA ARMSTRONG MD [Primary Care Provider] - 3-5 Days SANTHOSH VASQUEZ MD [Staff Physician] - 7 Days Prescriptions: Aspirin EC [Aspirin Enteric Coated TAB] 325 mg PO QDAY #30 tablet Atorvastatin 20 mg PO DAILY #30
[2018-05-27] MEDS: COGENTIN PO SCH (14:48)
== END 2018-05-27 18:33 | disposition home or self-care (01) | DRG 62 ==
LOC: ED 14:58 → CC1 19:07 → 4A 05-25 17:33 → CC1 05-25 19:49 → 4A 05-26 12:12
PROVIDERS: ADMIT Internal Medicine; ATTEND Internal Medicine
DX: I63.9 Cerebral infarction, unspecified (principal); G81.94 Hemiplegia, unspecified affecting left nondominant side; G93.40 Encephalopathy, unspecified; E87.6 Hypokalemia; I10 Essential (primary) hypertension; G24.01 Drug induced subacute dyskinesia; J32.9 Chronic sinusitis, unspecified; F32.9 Major depressive disorder, single episode, unspecified; Z82.49 Family history of ischemic heart disease and other diseases of the circulatory system
CPT/HCPCS: 36415; 70450; 70496; 70498; 70544; 70551; 71045; 80053; 80061; 82550; 82553; 82962; 83036; 84484; 85025; 85610; 85670; 85730; 93005; 93010; 93306; 93880; G0378; J1650; J2997; J7030; Q9967

== ENCOUNTER 2018-10-12 22:16 | Inpatient (IN) | payer MEDICARE ==
--- NOTE | 2018-10-12 22:30 | Emergency Department Report ---
ED Altered Mental Status HPI - General Stated Complaint: UNRESPONSIVE Time Seen by Provider: 10/12/18 22:16 Source: EMS Mode of arrival: Stretcher Limitations: Altered Mental Status, Physical Limitation - History of Present Illness Initial Comments: Patient is 48 year female presented by EMS for unresponsiveness and possible CVA. Code stroke was called by EMS in the field. It was safe to let her know well time is unknown. MD Complaint: altered mental status, decreased responsiveness -: Sudden Severity: severe Consistency of Symptoms: constant - Related Data Home Medications Medication Instructions Recorded Confirmed Last Taken Benztropine Mesylate 2 mg PO DAILY 05/25/18 05/25/18 05/23/18 08:00 Glimepiride 4 mg PO BID 05/25/18 10/12/18 05/23/18 20:00 Januvia 100 mg PO QDAY 05/25/18 07/09/18 05/23/18 08:00 Tresiba Flextouch U-100 50 units SUB-Q DAILY 05/25/18 05/25/18 03/24/18 08:00 Trulicity 0.75 mg SUB-Q 1XW 05/25/18 05/25/18 Unknown Vitamin D3 10,000 unit 50,000 units PO 1XW 05/25/18 05/25/18 Unknown Metoprolol [Lopressor] 12.5 mg PO BID 10/12/18 10/12/18 Unknown Sitagliptin Phos/Metformin HCl 1 each PO DAILY 10/12/18 10/12/18 Unknown [Janumet 50-500 mg Tablet] Previous Rx's Medication Instructions Recorded Last Taken Type Aspirin EC 325 mg PO QDAY #30 tablet 07/12/18 Unknown Rx AtorvaSTATin [Lipitor] 20 mg PO QHS tablet 07/12/18 Unknown Rx Benztropine [Cogentin] 2 mg PO QHS #30 tablet 07/12/18 Unknown Rx Ergocalciferol [Vitamin D2] 50,000 unit PO We capsule 07/12/18 Unknown Rx Ferrous Sulfate [Feosol 325 MG tab] 325 mg PO DAILY tablet 07/12/18 Unknown Rx Gabapentin [Neurontin] 300 mg PO BID capsule 07/12/18 Unknown Rx Lisinopril [Zestril TAB] 5 mg PO QDAY tablet 07/12/18 Unknown Rx Thiothixene 5 mg PO QPM 07/12/18 Unknown Rx Venlafaxine Xr [Effexor XR] 150 mg PO BID #60 capsule 07/12/18 Unknown Rx Allergies Allergy/AdvReac Type Severity Reaction Status Date / Time No Known Allergies Allergy Verified 05/25/18 00:36 ED Review of Systems ROS: Stated complaint: UNRESPONSIVE Other details as noted in HPI Comment: Unobtainable due to pts medical conditions ED Past Medical Hx - Past Medical History Previous Medical History?: Yes Hx Hypertension: Yes Hx Congestive Heart Failure: No Hx Diabetes: Yes Hx Asthma: No Hx COPD: No Hx Tuberculosis: No Hx HIV: No Additional medical history: depression - Surgical History Past Surgical History?: No Hx Coronary Stent: (ams) Hx Open Heart Surgery: (ams) Hx Pacemaker: (ams) Hx Internal Defibrillator: (ams) Hx Cholecystectomy: (ams) Hx Appendectomy: (ams) Hx Breast Surgery: (ams) - Social History Smoking Status: Never Smoker - Medications Home Medications: Home Medications Medication Instructions Recorded Confirmed Last Taken Type Benztropine Mesylate 2 mg PO DAILY 05/25/18 05/25/18 05/23/18 08:00 History Glimepiride 4 mg PO BID 05/25/18 10/12/18 05/23/18 20:00 History Januvia 100 mg PO QDAY 05/25/18 07/09/18 05/23/18 08:00 History Tresiba Flextouch U-100 50 units SUB-Q DAILY 05/25/18 05/25/18 03/24/18 08:00 History Trulicity 0.75 mg SUB-Q 1XW 05/25/18 05/25/18 Unknown History Vitamin D3 10,000 unit 50,000 units PO 1XW 05/25/18 05/25/18 Unknown History Aspirin EC 325 mg PO QDAY #30 tablet 07/12/18 Unknown Rx AtorvaSTATin [Lipitor] 20 mg PO QHS tablet 07/12/18 10/12/18 Unknown Rx Benztropine [Cogentin] 2 mg PO QHS #30 tablet 07/12/18 Unknown Rx Ergocalciferol [Vitamin D2] 50,000 unit PO We capsule 07/12/18 Unknown Rx Ferrous Sulfate [Feosol 325 MG tab] 325 mg PO DAILY tablet 07/12/18 10/12/18 Unknown Rx Gabapentin [Neurontin] 300 mg PO BID capsule 07/12/18 10/12/18 Unknown Rx Lisinopril [Zestril TAB] 5 mg PO QDAY tablet 07/12/18 10/12/18 Unknown Rx Thiothixene 5 mg PO QPM 07/12/18 Unknown Rx Venlafaxine Xr [Effexor XR] 150 mg PO BID #60 capsule 07/12/18 10/12/18 Unknown Rx Metoprolol [Lopressor] 12.5 mg PO BID 10/12/18 10/12/18 Unknown History Sitagliptin Phos/Metformin HCl 1 each PO DAILY 10/12/18 10/12/18 Unknown History [Janumet 50-500 mg Tablet] ED Physical Exam - General Limitations: Altered Mental Status, Physical Limitation General appearance: obtunded - Head Head exam: Present: atraumatic, normocephalic - Eye Eye exam: Present: normal appearance, PERRL Pupils: Present: normal accommodation - ENT ENT exam: Present: mucous membranes moist - Neck Neck exam: Present: normal inspection - Respiratory Respiratory exam: Present: normal lung sounds bilaterally. Absent: respiratory distress - Cardiovascular Cardiovascular Exam: Present: regular rate, normal rhythm. Absent: systolic murmur, diastolic murmur, rubs, gallop - GI/Abdominal GI/Abdominal exam: Present: soft, normal bowel sounds - Rectal Rectal exam: Present: deferred - Extremities Exam Extremities exam: Present: normal inspection - Neurological Exam Neurological exam: Present: altered - Expanded Neurological Exam Expanded Best Eye Response ([place]): (3) open to voice Best Motor Response ([place]): (6) obeys commands Best Verbal Response ([place]): (1) no verbal response Paige Total: 10 - Psychiatric Psychiatric exam: Present: normal affect, normal mood - Skin Skin exam: Present: warm, dry, intact, normal color. Absent: rash - Assessment Assessment Interval: Baseline - Level of Consciousness 1a. Level of Consciousness: arousable/minor stimuli - LOC Questions 1b. LOC Questions: answers no questions correctly - LOC Command 1c. LOC Commands: performs 1 task correctly - Best Gaze 2. Best Gaze: normal - Visual 3. Visual: no visual loss - Facial Palsy 4. Facial Palsy: normal symmetrical movement - Motor Arm 5a. Motor Arm Left: some gravity effort 5b. Motor Arm Right: some gravity effort - Motor Leg 6a. Motor Leg Left: some gravity effort 6b. Motor Leg Right: some gravity effort - Limb Ataxia 7. Limb Ataxia: absent - Sensory 8. Sensory: mild/moderate sensory loss - Best Language 9. Best Language: mute/global aphasia - Dysarthria 10. Dysarthria: mute/anarrthric - Extinction and Inattention 11. Extinction/Inattention: no abnormality - Scoring Total Score: 18 Stroke Severity: Moderate to Severe Stroke ED Course Vital Signs 10/12/18 10/12/18 10/13/18 22:31 22:51 00:12 Temperature 98.4 F Pulse Rate 82 90 Respiratory 12 11 L Rate Blood Pressure 179/98 Blood Pressure 188/95 [Left] O2 Sat by Pulse 100 100 Oximetry - Reevaluation(s) Reevaluation #1: Patient about by neurologists and recommends immediate CT of the head and CTA of the head and neck. Patient is responsive to verbal stimuli and will open her eyes to painful and verbal stimuli. Patient was also open and close her eyes on command. Patient has minimal movement to her extremities. 10/12/18 22:16 Reevaluation #2: After patient returned from CT the patient is not talking and able to move her right upper extremity. Patient has minimal movement to the left side and the right lower extremity. Patient states her last known well time was 9 AM this morning. I will consult again with our neurologist to see the patient again. 10/12/18 22:40 Reevaluation #3: I discussed results with patient and . Patient to be admitted to the hospitalist service. Patient agrees with plan of care. 10/13/18 00:55 - Consultations Consultation #1: Neurologist at bedside via mobile unit. Neurologist recommended CT of the head as well as an immediate CTA of head and neck. 10/12/18 22:16 I discussed the case again with the neurologist and neurologist and she will see the patient. 10/12/18 23:15 Neurology reassess the patient and states they would like the patient admitted for a stroke workup but believes he is most likely psychogenic. Per neurology the patient's exam is now completely different. Patient is not a candidate for TPA 10/13/18 00:05 Consultation #2: Hospitalist consulted for admission. Hospitalist admit patient and assume care of patient. 10/13/18 00:56 - Lab Data Result diagrams: 10/12/18 23:09 10/12/18 23:09 Lab Results 10/12/18 10/12/18 10/12/18 Range/Units 23:09 23:09 23:09 WBC 6.2 (4.5-11.0) K/mm3 RBC 4.58 (3.65-5.03) M/mm3 Hgb 10.4 (10.1-14.3) gm/dl Hct 32.1 (30.3-42.9) % MCV 70 L (79-97) fl MCH 23 L (28-32) pg MCHC 33 (30-34) % RDW 16.6 H (13.2-15.2) % Plt Count 422 (140-440) K/mm3 Lymph % (Auto) 38.6 H (13.4-35.0) % [place] % (Auto) 6.7 (0.0-7.3) % Eos % (Auto) 3.1 (0.0-4.3) % Baso % (Auto) 0.9 (0.0-1.8) % Lymph # 2.4 (1.2-5.4) K/mm3 [place] # 0.4 (0.0-0.8) K/mm3 Eos # 0.2 (0.0-0.4) K/mm3 Baso # 0.1 (0.0-0.1) K/mm3 Seg Neutrophils % 50.7 (40.0-70.0) % Seg Neutrophils # 3.1 (1.8-7.7) K/mm3 PT 13.5 (12.2-14.9) Sec. INR 1.06 (0.87-1.13) APTT 29.8 (24.2-36.6) Sec. Thrombin Time (15.1-19.6) Sec. Sodium 137 (137-145) mmol/L Potassium 4.5 (3.6-5.0) mmol/L Chloride 100.7 (98-107) mmol/L Carbon Dioxide 24 (22-30) mmol/L Anion Gap 17 mmol/L BUN 18 H (7-17) mg/dL Creatinine 0.9 (0.7-1.2) mg/dL Estimated GFR > 60 ml/min BUN/Creatinine Ratio 20 % Glucose 95 (65-100) mg/dL Calcium 8.9 (8.4-10.2) mg/dL Troponin T < 0.010 (0.00-0.029) ng/mL 10/12/18 Range/Units 23:09 WBC (4.5-11.0) K/mm3 RBC (3.65-5.03) M/mm3 Hgb (10.1-14.3) gm/dl Hct (30.3-42.9) % MCV (79-97) fl MCH (28-32) pg MCHC (30-34) % RDW (13.2-15.2) % Plt Count (140-440) K/mm3 Lymph % (Auto) (13.4-35.0) % [place] % (Auto) (0.0-7.3) % Eos % (Auto) (0.0-4.3) % Baso % (Auto) (0.0-1.8) % Lymph # (1.2-5.4) K/mm3 [place] # (0.0-0.8) K/mm3 Eos # (0.0-0.4) K/mm3 Baso # (0.0-0.1) K/mm3 Seg Neutrophils % (40.0-70.0) % Seg Neutrophils # (1.8-7.7) K/mm3 PT (12.2-14.9) Sec. INR (0.87-1.13) APTT (24.2-36.6) Sec. Thrombin Time 17.1 (15.1-19.6) Sec. Sodium (137-145) mmol/L Potassium (3.6-5.0) mmol/L Chloride (98-107) mmol/L Carbon Dioxide (22-30) mmol/L Anion Gap mmol/L BUN (7-17) mg/dL Creatinine (0.7-1.2) mg/dL Estimated GFR ml/min BUN/Creatinine Ratio % Glucose (65-100) mg/dL Calcium (8.4-10.2) mg/dL Troponin T (0.00-0.029) ng/mL - EKG Data -: EKG Interpreted by Ms EKG shows normal: sinus rhythm, axis, intervals, QRS complexes, ST-T waves Rate: normal - Radiology Data Radiology results: report reviewed CT head/brain wo con INDICATION / CLINICAL INFORMATION: Code stroke. Altered mental status TECHNIQUE: Axial CT imaging of the brain was obtained without IV contrast. Coronal and sagittal reformatted imaging obtained and reviewed. All CT scans at this location are performed using CT dose reduction for ALARA by means of automated exposure control. COMPARISON: None available. FINDINGS: No intracranial hemorrhage, mass, or midline shift. No extra-axial fluid collection or suggestion of acute territorial infarct. Ventricular system and basilar cisterns are unremarkable. Visualized paranasal sinuses and mastoid air cells are well aerated and clear. No calvarial abnormality. IMPRESSION: 1. Negative noncontrasted head CT scan. CTA of the head and neck INDICATION: Altered mental status and weakness. Possible stroke. TECHNIQUE: Axial CT angiographic imaging was performed through the head and neck after injection of 100 mL Omnipaque 300 contrast. 3 plane MIP reformats were produced. All CT scans at this location are performed using CT dose reduction for ALARA by means of automated exposure control. COMPARISON: Noncontrast CT of the head performed concomitantly. FINDINGS: Neck vasculature: The common carotid, internal carotid, extra carotid and vertebral arteries are patent and normal in caliber. Mild nonobstructive atherosclerosis is noted along the cavernous segments of the internal carotid arteries. Head vasculature: The components of the anterior and posterior circulation appear patent, normal in caliber and symmetric. Additional vascular findings: The visualized portions of the thoracic aorta and pulmonary arteries appear patent and normal in caliber. Nonvascular findings: The lung apices are clear. No significant mediastinal abnormality is identified. No mass or lymphadenopathy is seen along the neck. The thyroid, submandibular a nd parotid glands are unremarkable. The aerodigestive tract is patent and normal in caliber. No acute abnormality is noted along the brain. The sinuses and mastoid air cells are clear. The orbital structures and other visualized soft tissues are unremarkable. No acute osseous abnormality is seen. IMPRESSION: No acute vascular abnormality in the head or neck. - Medical Decision Making Patient is a 48-year-old female presents to emergency room with complaints of altered mental status and unresponsiveness. Patient with a lot of stimuli was initially responsive but nonverbal. Patient sent to CT of head and CTA of head and neck per radiologist recommendations. Patient then after returning from CT became more responsive. Neurology was reconstituted for reevaluation. Neurology did not recommend TPA is contraindication due to time. Patient will be admitted to the hospitalist service for further evaluation and treatment per radiology recommendations. Patient will require further stroke workup. Patient's labs are unremarkable. Patient's CT the head negative. CTA of head and neck negative. Patient's history of TIAs. Patient was initially minimally responsive and then became responsive and verbal and improved while in the ER. Patient's blood pressure and elevated and patient was given blood pressure medications to bring down her blood pressure. Pressures responded well to hydralazine 10 mg. Patient's symptoms and clinical findings could be secondary to a CVA or psychogenic. - Differential Diagnosis altered mental status. Unresponsive. TIA, CVA. Psychogenic Critical Care Time: Yes Critical care attestation.: If time is entered above; I have spent that time in minutes in the direct care of this critically ill patient, excluding procedure time. Critical Care Time: 45 minutes ED Disposition Clinical Impression: Unresponsive, Weakness Altered mental state Qualifiers: Altered mental status type: unspecified Qualified Code(s): R41.82 - Altered mental status, unspecified HTN (hypertension) Qualifiers: Hypertension type: essential hypertension Qualified Code(s): I10 - Essential (primary) hypertension Disposition: DC-09 OP ADMIT IP TO THIS HOSP Is pt being admited?: Yes Does the pt Need Aspirin: No Condition: Critical Time of Disposition: 00:56
--- NOTE | 2018-10-12 22:55 | Cat Scan Report ---
CT head/brain wo con INDICATION / CLINICAL INFORMATION: Code stroke. Altered mental status TECHNIQUE: Axial CT imaging of the brain was obtained without IV contrast. Coronal and sagittal reformatted imag ing obtained and reviewed. All CT scans at this location are performed using CT dose reduction for AL MICHELE by means of automated exposure control. COMPARISON: None available. FINDINGS: No intracranial hemorrhage, mass, or midline shift. No extra-axial fluid collection or suggestion of acute territorial infarct. Ventricular system and basilar cisterns are unremarkable. Visualized paranasal sinuses and mastoid air cells are well aerated and clear. No calvarial abnormali ty. IMPRESSION: 1. Negative noncontrasted head CT scan. COMMUNICATION: Time of Communication: 2150 EMAIL MANAGER Licensed Practitioner Receiving Report: Dr. Bernstein Signer Name: Delicia De Jesus MD Signed: 10/12/2018 10:51 PM Workstation Name: [id number]
[2018-10-12 23:25] LABS: Basophils # (Auto) 0.1 K/mm3 (0.0-0.1); Basophils % (Auto) 0.9 % (0.0-1.8); Eosinophils # (Auto) 0.2 K/mm3 (0.0-0.4); Eosinophils % (Auto) 3.1 % (0.0-4.3); Hematocrit 32.1 % (30.3-42.9); Hemoglobin 10.4 gm/dl (10.1-14.3); Lymphocytes # (Auto) 2.4 K/mm3 (1.2-5.4); Lymphocytes % (Auto) 38.6 % (13.4-35.0); Mean Corpuscular HGB Conc 33 % (30-34); Monocytes # (Auto) 0.4 K/mm3 (0.0-0.8); Monocytes % (Auto) 6.7 % (0.0-7.3); Platelet Count 422 K/mm3 (140-440); Red Blood Count 4.58 M/mm3 (3.65-5.03); Red Cell Distribution Width 16.6 % (13.2-15.2)
[2018-10-12 23:28] LABS: Mean Corpuscular Volume 70 fl (79-97)
--- NOTE | 2018-10-12 23:28 | Cat Scan Report ---
CTA of the head and neck INDICATION: Altered mental status and weakness. Possible stroke. TECHNIQUE: Axial CT angiographic imaging was performed through the head and neck after injection of 100 mL Omnip aque 300 contrast. 3 plane MIP reformats were produced. All CT scans at this location are performed u sing CT dose reduction for ALARA by means of automated exposure control. COMPARISON: Noncontrast CT of the head performed concomitantly. FINDINGS: Neck vasculature: The common carotid, internal carotid, extra carotid and vertebral arteries are ruby nt and normal in caliber. Mild nonobstructive atherosclerosis is noted along the cavernous segments o f the internal carotid arteries. Head vasculature: The components of the anterior and posterior circulation appear patent, normal in c aliber and symmetric. Additional vascular findings: The visualized portions of the thoracic aorta and pulmonary arteries ap pear patent and normal in caliber. Nonvascular findings: The lung apices are clear. No significant mediastinal abnormality is identified. No mass or lymphadenopathy is seen along the neck. The thyroid, submandibular and parotid glands are unremarkable. The aerodigestive tract is patent and normal in caliber. No acute abnormality is noted along the brain. The sinuses and mastoid air cells are clear. The orbit al structures and other visualized soft tissues are unremarkable. No acute osseous abnormality is see n. IMPRESSION: No acute vascular abnormality in the head or neck. Signer Name: Abilio Diggs MD Signed: 10/12/2018 11:24 PM Workstation Name: [id number]
--- NOTE | 2018-10-12 23:33 | Cat Scan Report ---
Please see the report for the CTA of the head performed concomitantly. Signer Name: Abilio Diggs MD Signed: 10/12/2018 11:29 PM Workstation Name: [id number]
[2018-10-12 23:37] LABS: INR 1.06 (0.87-1.13)
[2018-10-12 23:38] LABS: Partial Thromboplastin Time 29.8 Sec. (24.2-36.6)
[2018-10-12 23:39] LABS: BUN/Creatinine Ratio 20; Blood Urea Nitrogen 18 mg/dL (7-17); Calcium 8.9 mg/dL (8.4-10.2); Hemolysis Index 11
[2018-10-13] MEDS ORDERED: APRESOLINE IV ONE (00:07)
[2018-10-13] MEDS ORDERED: APRESOLINE ONE (00:10)
--- NOTE | 2018-10-13 00:13 | Emergency Department Report ---
ED Neuro Deficit HPI - General Chief Complaint: Neuro Symptoms/Deficit Stated Complaint: UNRESPONSIVE Time Seen by Provider: 10/12/18 22:16 Source: EMS Mode of arrival: Stretcher Limitations: Altered Mental Status, Physical Limitation - History of Present Illness Initial Comments: [facility] TeleNeurology Consult Services Impression: r/o right hemispheric stroke. Left sided numbness Not a tpa candidate due to: out of therapeutic window Cta head and neck did not show any lvo Differential Diagnosis: 1. Cardioembolic stroke 2. Small vessel disease/lacune 3. Thromboembolic, ayuuma-nl-onrdce mechanism 4. Hypercoagulable state-related infarct 5. Transient ischemic attack 6. Thrombotic mechanism, large artery disease Comments: [facility] contacted: 2211 [facility] at bedside: 2211 NIHSS assessment time: 2211, repeat exam at 2316 Recommendations: Activate Stroke protocol admission/order set Stroke/telemetry floor Neuro checks Bedside swallow eval Dvt prophylaxis IV fluids, normal saline ASA if no contraindications Head of bed below 30 degrees Euglycemia and avoid hyperthermia (prn acetaminophen) inpatient neurology consultation Inpatient stroke evaluation as per Neurology/ Internal Medicine Discussed with ED MD CC left sided weakness History of Present Illness Patient is a 48 year old woman who was brought to the hospital after she was found unresponsive by her 8 year old grandson. It seems she was found in the car, but this is unclear. The patient describes that she woke up this morning 7a m with left sided weakness, when she went to sleep the night of the , she did not have any weakness. As the day went on she remained the same throughout, and does not recall what happened after or when it happened. Previous tIA, like this, no stroke. Diagnostic: Ct head without contrast: no acute findings Cta head and neck no lvo per rad read Exam: When patient initially arrived, she was not speaking or responding to pain, but followed commands to look left and right last exam shows mild left sided sensory loss NIHSS score: 1 1A: Level of Consciousness - Alert; keenly responsive 1B: Ask Month and Age - Both Questions Right 1C: 'Blink Eyes' & 'Squeeze Hands' - Performs Both Tasks 2: Test Horizontal Extraocular Movements - Normal 3: Test Visual [place] - No Visual Loss 4: Test Facial Palsy - Normal symmetry 5A: Test Left Arm Motor Drift - No Drift for 10 Seconds 5B: Test Right Arm Motor Drift - No Drift for 10 Seconds 6A: Test Left Leg Motor Drift - No Drift for 5 Seconds 6B: Test Right Leg Motor Drift - No Drift for 5 Seconds 7: Test Limb Ataxia - No Ataxia 8: Test Sensation - Mild-Moderate Loss: Less Sharp/More Dull 9: Test Language/Aphasia - Normal; No aphasia 10: Test Dysarthria - Normal 11: Test Extinction/Inattention - No abnormality Medical Decision Making: - Extensive number of diagnosis or management options are considered above. - Extensive amount of complex data reviewed. - High risk of complication and/or morbidity or mortality are associated with differential diagnostic considerations above. - There may be Uncertain outcome and increased probability of prolonged functional impairment or high probability of severe prolonged functional impairment associated with some of these differential diagnosis. Medical Data Reviewed: 1.Data reviewed include clinical labs, radiology, Medical Tests; 2.Tests results discussed w/performing or interpreting physician; 3.Obtaining/reviewing old medical records; 4.Obtaining case history from another source; 5.Independent review of image, tracing or specimen. Patient was informed the Neurology Consult would happen via telehealth (remote video) and consented to receiving care in this manner. Severity: severe - Related Data Home Medications: Home Medications Medication Instructions Recorded Confirmed Last Taken Benztropine Mesylate 2 mg PO DAILY 05/25/18 05/25/18 05/23/18 08:00 Glimepiride 4 mg PO BID 05/25/18 10/12/18 05/23/18 20:00 Januvia 100 mg PO QDAY 05/25/18 07/09/18 05/23/18 08:00 Tresiba Flextouch U-100 50 units SUB-Q DAILY 05/25/18 05/25/18 03/24/18 08:00 Trulicity 0.75 mg SUB-Q 1XW 05/25/18 05/25/18 Unknown Vitamin D3 10,000 unit 50,000 units PO 1XW 05/25/18 05/25/18 Unknown Metoprolol [Lopressor] 12.5 mg PO BID 10/12/18 10/12/18 Unknown Sitagliptin Phos/Metformin HCl 1 each PO DAILY 10/12/18 10/12/18 Unknown [Janumet 50-500 mg Tablet] Previous Rx's Medication Instructions Recorded Last Taken Type Aspirin EC 325 mg PO QDAY #30 tablet 07/12/18 Unknown Rx AtorvaSTATin [Lipitor] 20 mg PO QHS tablet 07/12/18 Unknown Rx Benztropine [Cogentin] 2 mg PO QHS #30 tablet 07/12/18 Unknown Rx Ergocalciferol [Vitamin D2] 50,000 unit PO We capsule 07/12/18 Unknown Rx Ferrous Sulfate [Feosol 325 MG tab] 325 mg PO DAILY tablet 07/12/18 Unknown Rx Gabapentin [Neurontin] 300 mg PO BID capsule 07/12/18 Unknown Rx Lisinopril [Zestril TAB] 5 mg PO QDAY tablet 07/12/18 Unknown Rx Thiothixene 5 mg PO QPM 07/12/18 Unknown Rx Venlafaxine Xr [Effexor XR] 150 mg PO BID #60 capsule 07/12/18 Unknown Rx Allergies/Adverse Reactions: Allergies Allergy/AdvReac Type Severity Reaction Status Date / Time No Known Allergies Allergy Verified 05/25/18 00:36 ED Review of Systems ROS: Stated complaint: UNRESPONSIVE Other details as noted in HPI ED Past Medical Hx - Past Medical History Previous Medical History?: Yes Hx Hypertension: Yes Hx Congestive Heart Failure: No Hx Diabetes: Yes Hx Asthma: No Hx COPD: No Hx Tuberculosis: No Hx HIV: No Additional medical history: depression - Surgical History Past Surgical History?: No Hx Coronary Stent: (ams) Hx Open Heart Surgery: (ams) Hx Pacemaker: (ams) Hx Internal Defibrillator: (ams) Hx Cholecystectomy: (ams) Hx Appendectomy: (ams) Hx Breast Surgery: (ams) - Social History Smoking Status: Never Smoker - Medications Home Medications: Home Medications Medication Instructions Recorded Confirmed Last Taken Type Benztropine Mesylate 2 mg PO DAILY 05/25/18 05/25/18 05/23/18 08:00 History Glimepiride 4 mg PO BID 05/25/18 10/12/18 05/23/18 20:00 History Januvia 100 mg PO QDAY 05/25/18 07/09/18 05/23/18 08:00 History Tresiba Flextouch U-100 50 units SUB-Q DAILY 05/25/18 05/25/18 03/24/18 08:00 History Trulicity 0.75 mg SUB-Q 1XW 05/25/18 05/25/18 Unknown History Vitamin D3 10,000 unit 50,000 units PO 1XW 05/25/18 05/25/18 Unknown History Aspirin EC 325 mg PO QDAY #30 tablet 07/12/18 Unknown Rx AtorvaSTATin [Lipitor] 20 mg PO QHS tablet 07/12/18 10/12/18 Unknown Rx Benztropine [Cogentin] 2 mg PO QHS #30 tablet 07/12/18 Unknown Rx Ergocalciferol [Vitamin D2] 50,000 unit PO We capsule 07/12/18 Unknown Rx Ferrous Sulfate [Feosol 325 MG tab] 325 mg PO DAILY tablet 07/12/18 10/12/18 Unknown Rx Gabapentin [Neurontin] 300 mg PO BID capsule 07/12/18 10/12/18 Unknown Rx Lisinopril [Zestril TAB] 5 mg PO QDAY tablet 07/12/18 10/12/18 Unknown Rx Thiothixene 5 mg PO QPM 07/12/18 Unknown Rx Venlafaxine Xr [Effexor XR] 150 mg PO BID #60 capsule 07/12/18 10/12/18 Unknown Rx Metoprolol [Lopressor] 12.5 mg PO BID 10/12/18 10/12/18 Unknown History Sitagliptin Phos/Metformin HCl 1 each PO DAILY 10/12/18 10/12/18 Unknown History [Janumet 50-500 mg Tablet] ED Neuro Physical Exam - General Limitations: Altered Mental Status, Physical Limitation General appearance: obtunded Suspected Stroke: Yes - NIHSS Assessment Interval: Baseline 1a. Level of Consciousness: alert/keenly responsive 1b. LOC Questions: answers both correctly 1c. LOC Commands: performs tasks correctly 2. Best Gaze: normal 3. Visual: no visual loss 4. Facial Palsy: normal symmetrical movement 5b. Motor Arm Right: no drift 5a. Motor Arm Left: no drift 6a. Motor Leg Left: no drift 6b. Motor Leg Right: no drift 7. Limb Ataxia: absent 8. Sensory: mild/moderate sensory loss 9. Best Language: no aphasia 10. Dysarthria: normal 11. Extinction/Inattention: no abnormality Total Score: 1 Stroke Severity: Minor Stroke ED Course Vital Signs 10/12/18 10/12/18 22:31 22:51 Temperature 98.4 F Pulse Rate 82 Respiratory 12 11 L Rate Blood Pressure 188/95 [Left] O2 Sat by Pulse 100 100 Oximetry - Lab Data Result diagrams: 10/12/18 23:09 10/12/18 23:09 Lab Results 10/12/18 10/12/18 10/12/18 Range/Units 23:09 23:09 23:09 WBC 6.2 (4.5-11.0) K/mm3 RBC 4.58 (3.65-5.03) M/mm3 Hgb 10.4 (10.1-14.3) gm/dl Hct 32.1 (30.3-42.9) % MCV 70 L (79-97) fl MCH 23 L (28-32) pg MCHC 33 (30-34) % RDW 16.6 H (13.2-15.2) % Plt Count 422 (140-440) K/mm3 Lymph % (Auto) 38.6 H (13.4-35.0) % [place] % (Auto) 6.7 (0.0-7.3) % Eos % (Auto) 3.1 (0.0-4.3) % Baso % (Auto) 0.9 (0.0-1.8) % Lymph # 2.4 (1.2-5.4) K/mm3 [place] # 0.4 (0.0-0.8) K/mm3 Eos # 0.2 (0.0-0.4) K/mm3 Baso # 0.1 (0.0-0.1) K/mm3 Seg Neutrophils % 50.7 (40.0-70.0) % Seg Neutrophils # 3.1 (1.8-7.7) K/mm3 PT 13.5 (12.2-14.9) Sec. INR 1.06 (0.87-1.13) APTT 29.8 (24.2-36.6) Sec. Thrombin Time (15.1-19.6) Sec. Sodium 137 (137-145) mmol/L Potassium 4.5 (3.6-5.0) mmol/L Chloride 100.7 (98-107) mmol/L Carbon Dioxide 24 (22-30) mmol/L Anion Gap 17 mmol/L BUN 18 H (7-17) mg/dL Creatinine 0.9 (0.7-1.2) mg/dL Estimated GFR > 60 ml/min BUN/Creatinine Ratio 20 % Glucose 95 (65-100) mg/dL Calcium 8.9 (8.4-10.2) mg/dL Troponin T < 0.010 (0.00-0.029) ng/mL 10/12/18 Range/Units 23:09 WBC (4.5-11.0) K/mm3 RBC (3.65-5.03) M/mm3 Hgb (10.1-14.3) gm/dl Hct (30.3-42.9) % MCV (79-97) fl MCH (28-32) pg MCHC (30-34) % RDW (13.2-15.2) % Plt Count (140-440) K/mm3 Lymph % (Auto) (13.4-35.0) % [place] % (Auto) (0.0-7.3) % Eos % (Auto) (0.0-4.3) % Baso % (Auto) (0.0-1.8) % Lymph # (1.2-5.4) K/mm3 [place] # (0.0-0.8) K/mm3 Eos # (0.0-0.4) K/mm3 Baso # (0.0-0.1) K/mm3 Seg Neutrophils % (40.0-70.0) % Seg Neutrophils # (1.8-7.7) K/mm3 PT (12.2-14.9) Sec. INR (0.87-1.13) APTT (24.2-36.6) Sec. Thrombin Time 17.1 (15.1-19.6) Sec. Sodium (137-145) mmol/L Potassium (3.6-5.0) mmol/L Chloride (98-107) mmol/L Carbon Dioxide (22-30) mmol/L Anion Gap mmol/L BUN (7-17) mg/dL Creatinine (0.7-1.2) mg/dL Estimated GFR ml/min BUN/Creatinine Ratio % Glucose (65-100) mg/dL Calcium (8.4-10.2) mg/dL Troponin T (0.00-0.029) ng/mL Critical care attestation.: If time is entered above; I have spent that time in minutes in the direct care of this critically ill patient, excluding procedure time. ED Disposition Clinical Impression: CVA (cerebral vascular accident) Disposition: OP ADMIT IP TO THIS HOSP Is pt being admited?: Yes Condition: Stable
[2018-10-13] MEDS ORDERED: ZOFRAN IV PRN (02:04)
[2018-10-13] MEDS ORDERED: D50W (25GM) Syringe IV PRN (02:10)
[2018-10-13] MEDS ORDERED: VITAMIN D3 PO SCH (02:15)
--- NOTE | 2018-10-13 04:47 | History and Physical Report ---
CHIEF COMPLAINT: Altered mental status. HISTORY OF PRESENT ILLNESS: The patient is a 48-year-old female who was brought into the Emergency Room because of unresponsiveness and possibility of having a stroke. The patient was noted to have decreased responsiveness prior to presentation at the Emergency Room. There was no history of chest pain or fever. No history of nausea or vomiting. There was also no history of cough or trauma. PAST MEDICAL HISTORY: Hypertension, diabetes mellitus, depression, TIAs. PAST SURGICAL HISTORY: Not clear. FAMILY HISTORY: Noncontributory. SOCIAL HISTORY: The patient does not smoke, does not drink alcohol, and does not use illicit drugs. MEDICATIONS: The patient is on benztropine 2 mg by mouth daily, glimepiride 4 mg by mouth twice daily, Januvia 100 mg by mouth daily, Tresiba FlexTouch U-100 50 units subQ daily, Trulicity 0.75 mg subQ every week, vitamin D3 50 units p.o. every week, aspirin coated 325 mg by mouth daily, Lipitor 20 mg at bedtime, vitamin D2 50,000 units p.o. with capsule frequency unknown, ferrous sulfate 325 mg by mouth daily, Neurontin 300 mg by mouth twice daily, lisinopril 5 mg by mouth daily, thiothixene 5 milligrams by mouth every evening, Effexor XR 150 mg by mouth twice daily, metoprolol 12.5 mg by mouth daily, Janumet 50/500 one by mouth daily. ALLERGIES: There are no known drug allergies. REVIEW OF SYSTEMS: CONSTITUTIONAL: There is no fever, no chills, no diaphoresis. HEENT: There is no headache or sore throat. CARDIOVASCULAR SYSTEM: There is no chest pain or orthopnea. RESPIRATORY SYSTEM: There is no shortness of breath or cough. GASTROINTESTINAL SYSTEM: There is no nausea, no vomiting, no abdominal pain, diarrhea or constipation. NEUROLOGICAL SYSTEM: Altered mental status with decreased responsiveness noted. Left arm numbness and weakness noted. MUSCULOSKELETAL SYSTEM: There is no joint pain or swelling. DERMATOLOGICAL SYSTEM: There is no skin rash or itching. GENITOURINARY SYSTEM: There is no dysuria, hematuria, or flank pain. Rest of system review is normal. PHYSICAL EXAMINATION: GENERAL: At the time of exam, the patient was found to be alert, oriented to person and place. Unable to communicated. Not in acute distress. VITAL SIGNS: At initial time of presentation show temperature of 98.4 degrees Fahrenheit, pulse of 82, respirations 11, blood pressure 188/95, O2 sat of 100% on room air. HEENT: Pupils equal, round, reactive to light and accommodating. Extraocular muscles are intact. NECK: Supple with no JVD or carotid bruits. CARDIOVASCULAR SYSTEM: Showed normal first and second heart sounds with no gallops or murmurs. RESPIRATORY SYSTEM: Show good air entry on both sides of the lung with no abnormal breath sounds. GASTROINTESTINAL SYSTEM: Show abdomen to be full, soft, nontender with no organomegaly or rigidity. NEUROLOGIC: Shows the patient was unable to talk, which possibly is chronic. There is also weakness on the left upper extremity and left lower extremity. There is no loss of sensory function. MUSCULOSKELETAL SYSTEM: Shows no joint swelling or tenderness. DERMATOLOGICAL SYSTEM: Shows no skin rash or itching. GENITOURINARY SYSTEM: Showing no costovertebral angle tenderness. PERTINENT LABORATORY AND IMAGING STUDIES: The patient had CT of the head without contrast done that was unremarkable. Also, the patient had CT angiogram of the head done and showed no acute vascular abnormality in the head or neck. The patient had CT angiogram of the neck and the result was unremarkable. The patient had CBC done with normal white count, normal hemoglobin and normal hematocrit with CBC differential showing elevated lymphocyte count of 38.6%. The patient's coagulation studies were unremarkable. Chemistry came back unremarkable. Troponin level was normal. DIAGNOSES: 1. Cerebrovascular accident. 2. Hypertension. PLAN OF CARE: 1. The patient will be admitted to Telemetry. 2. The patient will have MRI of the brain without contrast done in the morning and will have bilateral carotid Doppler and 2D echo also done in the morning. 3. The patient will remain n.p.o. until swallow test is passed. 4. The patient will have physical therapy and speech therapy consult for evaluation and treatment. 5. The patient will have Neurology consult with Dr. Deneen Singh who is yet to get into the system. For now, we will consult Dr. Rosado until Dr. Singh is able to reach the patient. 6. The patient will be on aspirin 325 mg by mouth daily and will be on her home medications as shown in the medication reconciliation section. 7. The patient will also be on IV Zofran 4 mg every 8 hours as needed for nausea and vomiting. 8. Mornitor blood pressure which is trending downwards to provide permissive effect in stroke situation JOB# [id number] OCN/NTS MTDD
[2018-10-13] MEDS: HumuLIN R SUB-Q SCH ×5 (04:53→22:13)
[2018-10-13] MEDS ORDERED: BENZTROPINE MESYLATE 2 MG PO SCH (10:00)
--- NOTE | 2018-10-13 10:48 | Vascular Lab Report ---
"DUPLEX DOPPLER ULTRASOUND CAROTID, BILATERAL INDICATION: CVA. FINDINGS: RIGHT CAROTID: No significant atherosclerotic plaque. Right CCA velocity: 99 cm/sec. Right ICA peak systolic velocity: 75 cm/sec. ICA/CCA PSV Ratio: 0.8. Right Vertebral Artery: Antegrade flow. LEFT CAROTID: No significant atherosclerotic plaque. Left CCA velocity: 89 cm/sec. Left ICA peak systolic velocity: 87 cm/sec. ICA/CCA PSV Ratio: 1.0. Left Vertebral Artery: Antegrade flow. IMPRESSION: 1. Right Internal Carotid Artery: Normal. 2. Left Internal Carotid Artery: Normal. Velocity criteria are extrapolated from diameter data as defined by the Society of Radiologists in Ul trasound Consensus Conference, Radiology 2003; 229;340-346. Degree of Stenosis (%) || ICA PSV (cm/sec) || Plaque estimate (%) || ICA/CCA PSV Ratio Normal <125 None <2.0 <50 <125 <50 <2.0 50-69 125-230 50 2.0-4.0 70 but less than 100 >230 50 >4.0 Near occlusion High, low, or none visible variable Total occlusion None visible; no lumen N/A Signer Name: Doyle Garcia MD Signed: 10/13/2018 10:43 AM Workstation Name: [id number]"
--- NOTE | 2018-10-13 14:24 | Event Note ---
Date: 10/13/18 Patient with altered mental status, left sided weakness. MRI Brain done.report pending. Neuro consulted.
--- NOTE | 2018-10-13 14:31 | Magnetic Resonance Report ---
MR brain wo con INDICATION / CLINICAL INFORMATION: 48 years Female; CVA. 48-year-old female TECHNIQUE: Multiplanar, multisequence MR images of the brain were obtained. COMPARISON: CT - 10/12/2018 FINDINGS: BRAIN / INTRACRANIAL CONTENTS: No acute ischemia, acute hemorrhage, mass effect, midline shift, or hy drocephalus. No chronic infarct or atrophy. No significant white matter abnormality. CRANIOCERVICAL JUNCTION: No significant abnormality. VASCULAR FLOW-VOIDS: No significant abnormality. ORBITS: No significant abnormality of visualized orbits. SINUSES / MASTOIDS: No significant abnormality of the visualized paranasal sinuses or mastoid air mayra ls. ADDITIONAL FINDINGS: None. IMPRESSION: 1. No focal mass, hemorrhage, hydrocephalus, or acute ischemia. Signer Name: Jose E Bauer MD, III Signed: 10/13/2018 2:27 PM Workstation Name: [id number]
[2018-10-13] MEDS: LOPRESSOR PO SCH ×2 (16:32→22:11)
[2018-10-13] MEDS: NEURONTIN PO SCH ×2 (16:32→22:11)
[2018-10-13] MEDS: ZESTRIL PO SCH (16:32)
[2018-10-13] MEDS: EFFEXOR XR PO SCH ×2 (16:32→22:10)
[2018-10-13] MEDS: FEOSOL PO SCH (16:33)
[2018-10-13] MEDS: ASPIRIN PO SCH (16:33)
[2018-10-13] MEDS ORDERED: THIOTHIXENE 5 MG PO SCH (18:00)
[2018-10-13] MEDS: COGENTIN PO SCH (22:12)
[2018-10-14] MEDS: HumuLIN R SUB-Q SCH ×4 (02:10→23:11)
[2018-10-14] MEDS: FEOSOL PO SCH (09:55)
[2018-10-14] MEDS: ZESTRIL PO SCH (09:55)
[2018-10-14] MEDS: HEPARIN SUB-Q SCH ×2 (09:55→18:20)
[2018-10-14] MEDS: ASPIRIN PO SCH (09:55)
[2018-10-14] MEDS: EFFEXOR XR PO SCH ×2 (09:55→23:09)
[2018-10-14] MEDS: LOPRESSOR PO SCH ×2 (09:56→23:09)
[2018-10-14] MEDS: NEURONTIN PO SCH ×2 (09:56→23:12)
--- NOTE | 2018-10-14 11:17 | Progress Note ---
Subjective Date of service: 10/14/18 Interval history: thanks for the consult I have reviewed the CT and MRI mild atrophy plan EEG the MRI to my review is normal there is documwented left sixded weakness that I will comment on Thanks Objective - Vital Sign Vital Signs - 12hr 10/14/18 10/14/18 10/14/18 00:06 01:00 04:00 Temperature 98.3 F Pulse Rate 89 99 H Pulse Rate [ 102 H Apical] Respiratory 18 18 Rate Blood Pressure 123/71 O2 Sat by Pulse 98 Oximetry 10/14/18 10/14/18 04:59 07:34 Temperature 98.2 F 97.9 F Pulse Rate 84 87 Pulse Rate [ Apical] Respiratory 18 18 Rate Blood Pressure 116/69 130/81 O2 Sat by Pulse 100 100 Oximetry - Laboratory Findings CBC and BMP: 10/12/18 23:09 10/12/18 23:09 Abnormal Lab Findings: Abnormal Labs 10/12/18 10/12/18 10/13/18 23:09 23:09 04:42 MCV 70 L MCH 23 L RDW 16.6 H Lymph % (Auto) 38.6 H BUN 18 H POC Glucose 145 H 10/13/18 10/13/18 10/13/18 10:25 12:41 17:21 MCV MCH RDW Lymph % (Auto) BUN POC Glucose 152 H 146 H 147 H 10/13/18 10/14/18 20:13 07:42 MCV MCH RDW Lymph % (Auto) BUN POC Glucose 212 H 159 H
[2018-10-14 14:32] LABS: Chol/HDL Ratio 2.9 %
--- NOTE | 2018-10-14 19:07 | Progress Note ---
Assessment and Plan - Patient Problems (1) Altered mental status Current Visit: Yes Status: Acute Qualifiers: Altered mental status type: unspecified Qualified Code(s): R41.82 - Altered mental status, unspecified Plan to address problem: There is questionable history about the mental status. Was noted by a child. Also history of her waking up with EMS went to cut the dressing off. (2) Unresponsive Current Visit: Yes Status: Acute Plan to address problem: Patient no longer unresponsive. Alert and oriented 3. Unsure of exact etiology. Still working up seizure with EEG if EEG is unremarkable plan for discharge. MRI negative carotid Doppler negative. No evidence of stroke. Also lower differential is TIA at this point. History Interval history: Patient does have some intermittent twitching. Patient states I didn't have no seizure. Otherwise hospital course has been unremarkable. Pain laying in bed awake alert states this is his usual baseline. Complains of some lingering weakness on left leg. Discussion with neurology. Hospitalist Physical - Constitutional Vitals: Temp Pulse Resp BP Pulse Ox 97.9 F 87 18 130/81 100 10/14/18 07:34 10/14/18 07:34 10/14/18 07:34 10/14/18 07:34 10/14/18 07:34 General appearance: Present: no acute distress - EENT Eyes: Present: PERRL. Absent: scleral icterus, conjunctival injection ENT: hearing intact, clear oral mucosa, dentition normal, no oropharyngeal erythema, no poor dentition, no thrush, no edentulous - Respiratory Respiratory: bilateral: CTA - Cardiovascular Rhythm: regular - Extremities Extremities: no ischemia, pulses symmetrical, No edema, normal temperature, normal color, Full ROM Peripheral Pulses: within normal limits - Abdominal General gastrointestinal: soft, non-tender, non-distended, normal bowel sounds, no hepatomegaly, no splenomegaly - Integumentary Integumentary: Present: clear, warm, dry - Psychiatric Psychiatric: appropriate mood/affect, intact judgment & insight, memory intact - Neurologic Neurologic: CNII-XII intact (I cannot establish any objective left-sided weakness.), moves all extremities, other (patient somewhat hyperreflexic. Does also have some twitching as well.) Results - Labs CBC & Chem 7: 10/12/18 23:09 10/12/18 23:09 Labs: Laboratory Last Values WBC 6.2 K/mm3 (4.5-11.0) 10/12/18 23:09 RBC 4.58 M/mm3 (3.65-5.03) 10/12/18 23:09 Hgb 10.4 gm/dl (10.1-14.3) 10/12/18 23:09 Hct 32.1 % (30.3-42.9) 10/12/18 23:09 MCV 70 fl (79-97) L 10/12/18 23:09 MCH 23 pg (28-32) L 10/12/18 23:09 MCHC 33 % (30-34) 10/12/18 23:09 RDW 16.6 % (13.2-15.2) H 10/12/18 23:09 Plt Count 422 K/mm3 (140-440) 10/12/18 23:09 Lymph % (Auto) 38.6 % (13.4-35.0) H 10/12/18 23:09 [place] % (Auto) 6.7 % (0.0-7.3) 10/12/18 23:09 Eos % (Auto) 3.1 % (0.0-4.3) 10/12/18 23:09 Baso % (Auto) 0.9 % (0.0-1.8) 10/12/18 23:09 Lymph # 2.4 K/mm3 (1.2-5.4) 10/12/18 23:09 [place] # 0.4 K/mm3 (0.0-0.8) 10/12/18 23:09 Eos # 0.2 K/mm3 (0.0-0.4) 10/12/18 23:09 Baso # 0.1 K/mm3 (0.0-0.1) 10/12/18 23:09 Seg Neutrophils % 50.7 % (40.0-70.0) 10/12/18 23:09 Seg Neutrophils # 3.1 K/mm3 (1.8-7.7) 10/12/18 23:09 PT 13.5 Sec. (12.2-14.9) 10/12/18 23:09 INR 1.06 (0.87-1.13) 10/12/18 23:09 APTT 29.8 Sec. (24.2-36.6) 10/12/18 23:09 17.1 Sec. (15.1-19.6) 10/12/18 23:09 Sodium 137 mmol/L (137-145) 10/12/18 23:09 Potassium 4.5 mmol/L (3.6-5.0) 10/12/18 23:09 Chloride 100.7 mmol/L (98-107) 10/12/18 23:09 Carbon Dioxide 24 mmol/L (22-30) 10/12/18 23:09 17 mmol/L 10/12/18 23:09 BUN 18 mg/dL (7-17) H 10/12/18 23:09 0.9 mg/dL (0.7-1.2) 10/12/18 23:09 Estimated GFR > 60 ml/min 10/12/18 23:09 20 % 10/12/18 23:09 Glucose 95 mg/dL (65-100) 10/12/18 23:09 POC Glucose 131 (70-105) H 10/14/18 17:47 Calcium 8.9 mg/dL (8.4-10.2) 10/12/18 23:09 < 0.010 ng/mL (0.00-0.029) 10/12/18 23:09 Triglycerides 173 mg/dL (2-149) H 10/14/18 13:29 Cholesterol 122 mg/dL (50-199) 10/14/18 13:29 70 mg/dL (50-130) 10/14/18 13:29 42 mg/dL (40-59) 10/14/18 13:29 2.90 % 10/14/18 13:29 Active Medications - Current Medications Current Medications: Generic Name Dose Route Start Last Admin Trade Name Freq PRN Reason Stop Dose Admin Aspirin 325 mg 10/13/18 10:00 10/14/18 09:55 Aspirin PO 325 mg QDAY MINAL Administration Atorvastatin Calcium 20 mg 10/13/18 22:00 10/13/18 22:11 Lipitor PO 20 mg QHS MINAL Administration Benztropine Mesylate 2 mg 10/13/18 22:00 10/13/18 22:12 Cogentin PO 2 mg QHS MINAL Administration Dextrose 50 ml 10/13/18 02:10 D50w (25gm) Syringe IV PRN PRN Hypoglycemia Ergocalciferol 50,000 unit 10/15/18 10:00 Vitamin D2 PO We [facility] Ferrous Sulfate 325 mg 10/13/18 10:00 10/14/18 09:55 Feosol PO 325 mg DAILY MINAL Administration Gabapentin 300 mg 10/13/18 10:00 10/14/18 09:56 Neurontin PO 300 mg BID [facility] Administration Heparin Sodium (Porcine) 5,000 unit 10/14/18 10:00 10/14/18 09:55 Heparin SUB-Q 5,000 unit Q8H [facility] Administration Insulin Human Regular 0 units 10/13/18 03:00 10/14/18 09:56 Humulin R SUB-Q Not Given Q4HR [facility] Protocol Lisinopril 5 mg 10/13/18 10:00 10/14/18 09:55 Zestril PO 5 mg QDAY [facility] Administration Metoprolol Tartrate 12.5 mg 10/13/18 10:00 10/14/18 09:56 Lopressor PO 12.5 mg BID [facility] Administration Miscellaneous Medication 5 mg 10/13/18 18:00 Thiothixene PO QPM [facility] Ondansetron HCl 4 mg 10/13/18 02:04 Zofran IV Q8H PRN Nausea And Vomiting Venlafaxine HCl 150 mg 10/13/18 10:00 10/14/18 09:55 Effexor Xr PO 150 mg BID [facility] Administration
[2018-10-14] MEDS: COGENTIN PO SCH (23:09)
[2018-10-15] MEDS: HEPARIN SUB-Q SCH ×4 (02:12→18:43)
[2018-10-15] MEDS: HumuLIN R SUB-Q SCH ×4 (02:32→18:43)
[2018-10-15] MEDS ORDERED: VITAMIN D2 PO SCH (10:00)
[2018-10-15] MEDS: EFFEXOR XR PO SCH (10:19)
[2018-10-15] MEDS: LOPRESSOR PO SCH (10:19)
[2018-10-15] MEDS: ZESTRIL PO SCH (10:19)
[2018-10-15] MEDS: NEURONTIN PO SCH (10:19)
[2018-10-15] MEDS: ASPIRIN PO SCH (10:19)
[2018-10-15] MEDS: FEOSOL PO SCH (10:19)
--- NOTE | 2018-10-15 12:54 | Discharge Summary ---
Providers - Providers Date of Admission: 10/13/18 01:44 Date of discharge: 10/15/18 Attending physician: KRYSTEN MOCTEZUMA 10/13/18 06:00 Consult to Physician [CONS] Routine Comment: Consulting Provider: SANTHOSH VASQUEZ Physician Instructions: Reason For Exam: CVA Physical Therapy Evaluation and Treat [CONS] Routine Comment: Reason For Exam: CVA Speech Therapy Evaluation and Treat [CONS] Routine Reason For Exam: CVA Primary care physician: none Hospitalization Condition: Good Pertinent studies: MRI MRA unremarkable. A right ultrasound also unremarkable. Hospital course: Patient presented with a subjective episode of unresponsiveness. Patient was living in vehicle and call responders. Apparently woke up when he got there patient presented for stroke workup. MRI head unremarkable. Ruled out for stroke risk factors also evaluated. Lipids was stable patient had no evidence of weakness. Patient was living in car and is scheduled to move in to apartment facility. Patient will be discharged to that facility. Disposition: DC-30 STILL A PATIENT - Discharge Diagnoses (1) Altered mental status Status: Resolved Qualifiers: Altered mental status type: unspecified Qualified Code(s): R41.82 - Altered mental status, unspecified (2) Unresponsive Status: Resolved Core Measure Documentation - Palliative Care Palliative Care/ Comfort Measures: Not Applicable - Core Measures Any of the following diagnoses?: none Exam - Constitutional Vitals: Temp Pulse Resp BP Pulse Ox 98.4 F 87 18 105/66 100 10/15/18 04:36 10/15/18 04:36 10/15/18 04:36 10/15/18 04:36 10/15/18 07:39 General appearance: Present: no acute distress, well-nourished - EENT Eyes: Present: PERRL ENT: hearing intact, clear oral mucosa - Neck Neck: Present: supple, normal ROM - Respiratory Respiratory effort: normal Respiratory: bilateral: CTA - Cardiovascular Heart Sounds: Present: S1 & S2. Absent: rub, click - Extremities Extremities: pulses symmetrical, No edema Peripheral Pulses: within normal limits - Abdominal General gastrointestinal: Present: soft, non-tender, non-distended, normal bowel sounds Female genitourinary: Present: normal - Integumentary Integumentary: Present: clear, warm, dry - Musculoskeletal Musculoskeletal: gait normal, strength equal bilaterally - Psychiatric Psychiatric: appropriate mood/affect, intact judgment & insight - Neurologic Neurologic: CNII-XII intact, moves all extremities Plan Activity: no restrictions Diet: low fat, low cholesterol Follow up with: [facility] [Other] - 7 Days Prescriptions: Aspirin 325 mg PO QDAY #30 tablet Benztropine [Cogentin] 2 mg PO QHS #30 tablet Venlafaxine Xr [Effexor XR] 150 mg PO BID #60 capsule AtorvaSTATin [Lipitor] 20 mg PO QHS #30 tablet Metoprolol [Lopressor TAB] 12.5 mg PO BID #60 tablet Gabapentin [Neurontin] 300 mg PO BID #60 capsule Lisinopril [Zestril TAB] 5 mg PO QDAY #30 tablet
[2018-10-15 13:59] VITALS: BP 106/71
== END 2018-10-15 18:50 | disposition home or self-care (01) | DRG 948 ==
LOC: ED 22:16 → 4A 10-13 01:44
PROVIDERS: ADMIT Internal Medicine; ATTEND Internal Medicine
DX: R41.82 Altered mental status, unspecified (principal); E11.9 Type 2 diabetes mellitus without complications; I10 Essential (primary) hypertension; F32.9 Major depressive disorder, single episode, unspecified; Z79.899 Other long term (current) drug therapy
CPT/HCPCS: 36415; 70450; 70496; 70498; 70551; 80048; 80061; 82962; 84484; 85025; 85610; 85670; 85730; 93005; 93010; 93308; 93321; 93325; 93880; G0378; A9270-GY; J0360; J1644; J1815; Q9967

== ENCOUNTER 2018-10-31 08:38 | Emergency (ER) | payer MEDICARE ==
[2018-10-31 10:22] VITALS: BP 133/84
--- NOTE | 2018-10-31 10:26 | Emergency Department Report ---
ED General Adult HPI - General Chief complaint: Psych Stated complaint: ADB PAIN Time Seen by Provider: 10/31/18 09:58 Source: EMS Mode of arrival: Stretcher Limitations: No Limitations - History of Present Illness Initial comments: This is a 48-year-old female with a history of platelet disorder and schizophrenia. She states "it happened again". Apparently she has had several previous episodes of left-sided numbness which he again experienced today. He alternatively describes it as a weakness but is moving her left side without difficulty. She states that she is tired of this happening. Review of her previous medical records indicates that she arrived at this facility "subjectively unresponsive" at the end of September. She was admitted for a stroke workup. MRI and vascular studies were normal. A carotid ultrasound was also unremarkable. Her discharge instructions reveal that she was almost at the time: Hospitalization Condition: Good Pertinent studies: MRI MRA unremarkable. A right ultrasound also unremarkable. Hospital course: Patient presented with a subjective episode of unresponsiveness. Patient was living in vehicle and call responders. Apparently woke up when he got there patient presented for stroke workup. MRI head unremarkable. Ruled out for stroke risk factors also evaluated. Lipids was stable patient had no evidence of weakness. Patient was living in car and is scheduled to move in to apartment facility. Patient will be discharged to that facility. According to the triage note EMS was summoned and the patient became "catatonic after putting children on school bus this a.m. She was not speaking during triage. However, when I encountered the patient she was fully verbal. She was moving all her extremities. Her NIH stroke score was 0. She had no residual numbness. Apparently the patient has a history of hypertension as well as diabetes. She states that she saw her mental health provider this week. She states that there was no acute problem at that time. -: unknown Severity scale (0 -10): 0 Consistency: now resolved Associated Symptoms: denies other symptoms Treatments Prior to Arrival: none - Related Data Home Medications Medication Instructions Recorded Confirmed Last Taken Benztropine Mesylate 2 mg PO DAILY 05/25/18 05/25/18 05/23/18 08:00 Glimepiride 4 mg PO BID 05/25/18 10/12/18 05/23/18 20:00 Januvia 100 mg PO QDAY 05/25/18 07/09/18 05/23/18 08:00 Tresiba Flextouch U-100 50 units SUB-Q DAILY 05/25/18 05/25/18 03/24/18 08:00 Trulicity 0.75 mg SUB-Q 1XW 05/25/18 05/25/18 Unknown Vitamin D3 10,000 unit 50,000 units PO 1XW 05/25/18 05/25/18 Unknown Sitagliptin Phos/Metformin HCl 1 each PO DAILY 10/12/18 10/12/18 Unknown [Janumet 50-500 mg Tablet] Previous Rx's Medication Instructions Recorded Last Taken Type Aspirin EC 325 mg PO QDAY #30 tablet 07/12/18 Unknown Rx Ergocalciferol [Vitamin D2] 50,000 unit PO We capsule 07/12/18 Unknown Rx Ferrous Sulfate [Feosol 325 MG tab] 325 mg PO DAILY tablet 07/12/18 Unknown Rx Thiothixene 5 mg PO QPM 07/12/18 Unknown Rx Aspirin 325 mg PO QDAY #30 tablet 10/15/18 Unknown Rx AtorvaSTATin [Lipitor] 20 mg PO QHS #30 tablet 10/15/18 Unknown Rx Benztropine [Cogentin] 2 mg PO QHS #30 tablet 10/15/18 Unknown Rx Gabapentin [Neurontin] 300 mg PO BID #60 capsule 10/15/18 Unknown Rx Lisinopril [Zestril TAB] 5 mg PO QDAY #30 tablet 10/15/18 Unknown Rx Metoprolol [Lopressor TAB] 12.5 mg PO BID #60 tablet 10/15/18 Unknown Rx Venlafaxine Xr [Effexor XR] 150 mg PO BID #60 capsule 10/15/18 Unknown Rx Allergies Allergy/AdvReac Type Severity Reaction Status Date / Time No Known Allergies Allergy Verified 05/25/18 00:36 ED Review of Systems ROS: Stated complaint: ADB PAIN Other details as noted in HPI Constitutional: denies: chills, fever Eyes: denies: eye pain, eye discharge, vision change ENT: denies: ear pain, throat pain Respiratory: denies: cough, shortness of breath, wheezing Cardiovascular: denies: chest pain, palpitations Endocrine: no symptoms reported Gastrointestinal: denies: abdominal pain, nausea, diarrhea Genitourinary: denies: urgency, dysuria, discharge Musculoskeletal: denies: back pain, joint swelling, arthralgia Skin: denies: rash, lesions Neurological: weakness (questionable, described as "catatonia" by triage), numbness. denies: headache, paresthesias Psychiatric: denies: anxiety, depression Hematological/Lymphatic: denies: easy bleeding, easy bruising ED Past Medical Hx - Past Medical History Hx Hypertension: Yes Hx Congestive Heart Failure: No Hx Diabetes: Yes Hx Asthma: No Hx COPD: No Hx Tuberculosis: No Hx HIV: No Additional medical history: depression - Surgical History Hx Coronary Stent: (ams) Hx Open Heart Surgery: (ams) Hx Pacemaker: (ams) Hx Internal Defibrillator: (ams) Hx Cholecystectomy: (ams) Hx Appendectomy: (ams) Hx Breast Surgery: (ams) - Social History Smoking Status: Never Smoker Substance Use Type: None - Medications Home Medications: Home Medications Medication Instructions Recorded Confirmed Last Taken Type Benztropine Mesylate 2 mg PO DAILY 05/25/18 05/25/18 05/23/18 08:00 History Glimepiride 4 mg PO BID 05/25/18 10/12/18 05/23/18 20:00 History Januvia 100 mg PO QDAY 05/25/18 07/09/18 05/23/18 08:00 History Tresiba Flextouch U-100 50 units SUB-Q DAILY 05/25/18 05/25/18 03/24/18 08:00 History Trulicity 0.75 mg SUB-Q 1XW 05/25/18 05/25/18 Unknown History Vitamin D3 10,000 unit 50,000 units PO 1XW 05/25/18 05/25/18 Unknown History Aspirin EC 325 mg PO QDAY #30 tablet 07/12/18 Unknown Rx Ergocalciferol [Vitamin D2] 50,000 unit PO We capsule 07/12/18 Unknown Rx Ferrous Sulfate [Feosol 325 MG tab] 325 mg PO DAILY tablet 07/12/18 10/12/18 Unknown Rx Thiothixene 5 mg PO QPM 07/12/18 Unknown Rx Sitagliptin Phos/Metformin HCl 1 each PO DAILY 10/12/18 10/12/18 Unknown History [Janumet 50-500 mg Tablet] Aspirin 325 mg PO QDAY #30 tablet 10/15/18 Unknown Rx AtorvaSTATin [Lipitor] 20 mg PO QHS #30 tablet 10/15/18 Unknown Rx Benztropine [Cogentin] 2 mg PO QHS #30 tablet 10/15/18 Unknown Rx Gabapentin [Neurontin] 300 mg PO BID #60 capsule 10/15/18 Unknown Rx Lisinopril [Zestril TAB] 5 mg PO QDAY #30 tablet 10/15/18 Unknown Rx Metoprolol [Lopressor TAB] 12.5 mg PO BID #60 tablet 10/15/18 Unknown Rx Venlafaxine Xr [Effexor XR] 150 mg PO BID #60 capsule 10/15/18 Unknown Rx ED Physical Exam - General Limitations: No Limitations General appearance: alert, in no apparent distress - Head Head exam: Present: atraumatic, normocephalic - Eye Eye exam: Present: normal appearance. Absent: scleral icterus - ENT ENT exam: Present: mucous membranes moist - Neck Neck exam: Present: normal inspection. Absent: tenderness, meningismus - Respiratory Respiratory exam: Present: normal lung sounds bilaterally. Absent: respiratory distress - Cardiovascular Cardiovascular Exam: Present: regular rate, normal rhythm. Absent: systolic murmur, diastolic murmur, rubs, gallop - GI/Abdominal GI/Abdominal exam: Present: soft, normal bowel sounds. Absent: distended, tenderness, guarding, rebound, rigid - Extremities Exam Extremities exam: Present: normal inspection - Back Exam Back exam: Present: normal inspection - Neurological Exam Neurological exam: Present: alert, oriented X3, CN II-XII intact, other (NIH s troke score is 0). Absent: motor sensory deficit - Psychiatric Psychiatric exam: Present: normal mood, flat affect - Skin Skin exam: Present: warm, dry, intact, normal color. Absent: rash ED Course Vital Signs 10/31/18 09:14 Temperature 97.5 F L Pulse Rate 95 H Respiratory 18 Rate Blood Pressure 133/84 [Left] O2 Sat by Pulse 97 Oximetry - Reevaluation(s) Reevaluation #1: I spoke with her knee in the mental health counselor. She could identify no acute psychiatric decompensation. She states it's appropriate for the patient to follow-up with her psychiatric provider who she has already seen once this week. Patient remains cooperative and stable emergency department. She has no evidence of stroke. She may very well have been having conversion or somatic symptoms at home. She states this is a recurrent problem. 08/09/19 15:29 ED Medical Decision Making - Lab Data Result diagrams: 10/31/18 10:07 10/31/18 10:07 Laboratory Results - last 24 hr 10/31/18 10/31/18 10/31/18 10:07 10:07 10:07 WBC 5.8 RBC 4.94 Hgb 10.8 Hct 34.4 MCV 70 L MCH 22 L MCHC 31 RDW 17.1 H Plt Count 368 Lymph % (Auto) 29.4 [place] % (Auto) 5.5 Eos % (Auto) 2.1 Baso % (Auto) 0.7 Lymph # 1.7 [place] # 0.3 Eos # 0.1 Baso # 0.0 Seg Neutrophils % 62.3 Seg Neutrophils # 3.6 Sodium 141 Potassium 4.8 Chloride 103.0 Carbon Dioxide 26 Anion Gap 17 BUN 21 H Creatinine 0.9 Estimated GFR > 60 BUN/Creatinine Ratio 23 Glucose 270 H Calcium 9.5 Magnesium Total Bilirubin Direct Bilirubin Indirect Bilirubin AST ALT Alkaline Phosphatase Total Creatine Kinase CK-MB (CK-2) CK-MB (CK-2) Rel Index Total Protein Albumin Albumin/Globulin Ratio TSH 0.179 L Urine Color Urine Turbidity Urine pH Ur Specific [place] Urine Protein Urine Glucose (UA) Urine Ketones Urine Blood Urine Nitrite Urine Bilirubin Urine Urobilinogen Ur Leukocyte Esterase Urine WBC (Auto) Urine RBC (Auto) U Epithel Cells (Auto) Urine Opiates Screen Urine Methadone Screen Acetaminophen Ur Barbiturates Screen Ur Phencyclidine Scrn Ur Amphetamines Screen U Benzodiazepines Scrn Urine Cocaine Screen U Marijuana (THC) Screen Drugs of Abuse Note Plasma/Serum Alcohol 10/31/18 10/31/18 10/31/18 10:07 10:07 10:07 WBC RBC Hgb Hct MCV MCH MCHC RDW Plt Count Lymph % (Auto) [place] % (Auto) Eos % (Auto) Baso % (Auto) Lymph # [place] # Eos # Baso # Seg Neutrophils % Seg Neutrophils # Sodium Potassium Chloride Carbon Dioxide Anion Gap BUN Creatinine Estimated GFR BUN/Creatinine Ratio Glucose Calcium Magnesium 1.80 Total Bilirubin 0.20 Direct Bilirubin < 0.2 Indirect Bilirubin 0.0 AST 12 ALT 14 Alkaline Phosphatase 117 Total Creatine Kinase 58 CK-MB (CK-2) 1.6 CK-MB (CK-2) Rel Index 2.7 Total Protein 7.3 Albumin 4.3 Albumin/Globulin Ratio 1.4 TSH Urine Color Urine Turbidity Urine pH Ur Specific [place] Urine Protein Urine Glucose (UA) Urine Ketones Urine Blood Urine Nitrite Urine Bilirubin Urine Urobilinogen Ur Leukocyte Esterase Urine WBC (Auto) Urine RBC (Auto) U Epithel Cells (Auto) Urine Opiates Screen Urine Methadone Screen Acetaminophen < 5.0 L Ur Barbiturates Screen Ur Phencyclidine Scrn Ur Amphetamines Screen U Benzodiazepines Scrn Urine Cocaine Screen U Marijuana (THC) Screen Drugs of Abuse Note Plasma/Serum Alcohol < 0.01 10/31/18 10/31/18 10:32 10:32 WBC RBC Hgb Hct MCV MCH MCHC RDW Plt Count Lymph % (Auto) [place] % (Auto) Eos % (Auto) Baso % (Auto) Lymph # [place] # Eos # Baso # Seg Neutrophils % Seg Neutrophils # Sodium Potassium Chloride Carbon Dioxide Anion Gap BUN Creatinine Estimated GFR BUN/Creatinine Ratio Glucose Calcium Magnesium Total Bilirubin Direct Bilirubin Indirect Bilirubin AST ALT Alkaline Phosphatase Total Creatine Kinase CK-MB (CK-2) CK-MB (CK-2) Rel Index Total Protein Albumin Albumin/Globulin Ratio TSH Urine Color Colorless Urine Turbidity Clear Urine pH 6.0 Ur Specific [place] 1.008 Urine Protein <15 mg/dl Urine Glucose (UA) 150 Urine Ketones Neg Urine Blood Neg Urine Nitrite Neg Urine Bilirubin Neg Urine Urobilinogen < 2.0 Ur Leukocyte Esterase Tr Urine WBC (Auto) 2.0 Urine RBC (Auto) 3.0 U Epithel Cells (Auto) 3.0 Urine Opiates Screen Presumptive negative Urine Methadone Screen Presumptive negative Acetaminophen Ur Barbiturates Screen Presumptive negative Ur Phencyclidine Scrn Presumptive negative Ur Amphetamines Screen Presumptive negative U Benzodiazepines Scrn Presumptive negative Urine Cocaine Screen Presumptive negative U Marijuana (THC) Screen Presumptive negative Drugs of Abuse Note Disclamer Plasma/Serum Alcohol Critical care attestation.: If time is entered above; I have spent that time in minutes in the direct care of this critically ill patient, excluding procedure time. ED Disposition Clinical Impression: Psychiatric disorder, Somatic symptom disorder Disposition: DC-01 TO HOME OR SELFCARE Is pt being admited?: No Does the pt Need Aspirin: No Condition: Stable Instructions: Schizophrenia (ED) Additional Instructions: Return any acute change or problem. Follow-up with your psychiatrist. Referrals: PRIMARY CARE, [Primary Care Provider] - 3-5 Days
[2018-10-31 10:30] LABS: Basophils % (Auto) 0.7 % (0.0-1.8); Eosinophils # (Auto) 0.1 K/mm3 (0.0-0.4); Eosinophils % (Auto) 2.1 % (0.0-4.3); Hematocrit 34.4 % (30.3-42.9); Hemoglobin 10.8 gm/dl (10.1-14.3); Lymphocytes # (Auto) 1.7 K/mm3 (1.2-5.4); Lymphocytes % (Auto) 29.4 % (13.4-35.0); Mean Corpuscular HGB Conc 31 % (30-34); Monocytes # (Auto) 0.3 K/mm3 (0.0-0.8); Monocytes % (Auto) 5.5 % (0.0-7.3); Platelet Count 368 K/mm3 (140-440); Red Blood Count 4.94 M/mm3 (3.65-5.03); Red Cell Distribution Width 17.1 % (13.2-15.2)
[2018-10-31 10:34] LABS: Mean Corpuscular Volume 70 fl (79-97)
[2018-10-31 10:49] LABS: BUN/Creatinine Ratio 23; Blood Urea Nitrogen 21 mg/dL (7-17); Calcium 9.5 mg/dL (8.4-10.2); Hemolysis Index 19
[2018-10-31 10:50] LABS: Creatine Kinase MB 1.6 ng/mL (0.0-4.0)
[2018-10-31 10:53] LABS: Alanine Aminotransferase 14 units/L (7-56); Albumin 4.3 g/dL (3.9-5); Bilirubin,Direct < 0.2 mg/dL (0-0.2)
[2018-10-31 10:55] LABS: Bilirubin,Urine NEG (Negative); Blood,Urine NEG (Negative); Color,Urine Colorless (Yellow); Protein,Urine <15 mg/dL mg/dL (Negative); Urobilinogen,Urine < 2.0 mg/dL (<2.0)
[2018-10-31 12:03] LABS: Amphetamine Screen,Urine PRESUMPTIVE NEGATIVE; Benzodiazepines Screen,Urine PRESUMPTIVE NEGATIVE; Cannabinoid Screen,Urine PRESUMPTIVE NEGATIVE; Cocaine Screen,Urine PRESUMPTIVE NEGATIVE; Methadone Screen,Urine PRESUMPTIVE NEGATIVE; Opiate Screen,Urine PRESUMPTIVE NEGATIVE
== END 2018-10-31 16:00 | disposition home or self-care (01) ==
LOC: ED 08:38
DX: F23 Brief psychotic disorder (principal); F45.9 Somatoform disorder, unspecified; I10 Essential (primary) hypertension; E11.9 Type 2 diabetes mellitus without complications; F32.9 Major depressive disorder, single episode, unspecified; Z79.899 Other long term (current) drug therapy; Z79.82 Long term (current) use of aspirin
CPT/HCPCS: 36415; 80048; 80076; 80307; 80320; 81001; 82550; 82553; 83735; 84443; 85025; 99284; G0480

== ENCOUNTER 2019-07-19 13:25 | Emergency (ER) | payer MEDICARE ==
--- NOTE | 2019-07-19 14:17 | Emergency Department Report ---
HPI <NIDA REDMOND - Last Filed: 07/19/19 19:23> - HPI HPI: 49-year-old -[place] female presents to the emergency department for what appears to be a mental health evaluation. The patient went to [facility] yesterday for a reason that is unknown to me. While in the emergency department the patient says that she felt that they were trying to induce a heart attack in her. Patient says that she was laying down on a gurney when she heard some type of sound and then started having some palpitations. She felt that this sound was created by the people at the emergency department in order to cause a heart attack. Apparently the says that her behavior has been otherwise odd. She denies any suicidal or homicidal ideations. She has a past medical history of diabetes, hypertension and depression. <ADONIS PARRA - Last Filed: 07/20/19 06:12> - General Chief Complaint: Psych Time Seen by Provider: 07/19/19 13:46 ED Past Medical Hx <NIDA REDMOND - Last Filed: 07/19/19 19:23> - Past Medical History Hx Hypertension: Yes Hx Congestive Heart Failure: No Hx Diabetes: Yes Hx Psychiatric Treatment: (Schizo effective, manic depression, anxiety, bipolar) Hx Asthma: No Hx COPD: No Hx Tuberculosis: No Hx HIV: No Additional medical history: depression, Hyperlipidemia, anemia, neuropathy - Surgical History Hx Coronary Stent: (ams) Hx Open Heart Surgery: (ams) Hx Pacemaker: (ams) Hx Internal Defibrillator: (ams) Hx Cholecystectomy: (ams) Hx Appendectomy: (ams) Hx Breast Surgery: (ams) - Social History Smoking Status: Never Smoker Substance Use Type: None <ADONIS PARRA - Last Filed: 07/20/19 06:12> - Medications Home Medications: Home Medications Medication Instructions Recorded Confirmed Last Taken Type Benztropine Mesylate 2 mg PO DAILY 05/25/18 07/20/19 3 Days Ago History ~07/16/19 Glimepiride 4 mg PO BID 05/25/18 07/20/19 3 Days Ago History ~07/16/19 Januvia 100 mg PO QDAY 05/25/18 07/20/19 3 Days Ago History ~07/16/19 Vitamin D3 10,000 unit 50,000 units PO 1XW 05/25/18 07/20/19 3 Days Ago History ~07/16/19 Ergocalciferol [Vitamin D2] 50,000 unit PO We capsule 07/12/18 07/20/19 3 Days Ago Rx ~07/16/19 Ferrous Sulfate [Feosol 325 MG tab] 325 mg PO DAILY tablet 07/12/18 07/20/19 3 Days Ago Rx ~07/16/19 Thiothixene 5 mg PO QPM 07/12/18 07/20/19 Unknown Rx Sitagliptin Phos/Metformin HCl 1 each PO DAILY 10/12/18 07/20/19 3 Days Ago History [Janumet 50-500 mg Tablet] ~07/16/19 AtorvaSTATin [Lipitor] 20 mg PO QHS #30 tablet 10/15/18 07/20/19 3 Days Ago Rx ~07/16/19 Benztropine [Cogentin] 2 mg PO QHS #30 tablet 10/15/18 07/20/19 3 Days Ago Rx ~07/16/19 Gabapentin 300 mg PO BID #60 capsule 10/15/18 07/20/19 3 Days Ago Rx ~07/16/19 Metoprolol [Lopressor TAB] 12.5 mg PO BID #60 tablet 10/15/18 07/20/19 3 Days Ago Rx ~07/16/19 Venlafaxine Xr [Effexor XR] 150 mg PO BID #60 capsule 10/15/18 07/20/19 3 Days Ago Rx ~07/16/19 Aspirin EC [Ecotrin] 325 mg PO QDAY 07/20/19 07/20/19 Unknown History Januvia 100 mg PO DAILY 07/20/19 07/20/19 Unknown History Metformin HCl ER 500 mg PO DAILY 07/20/19 07/20/19 Unknown History Metformin HCl [Metformin HCl ER] 1,000 mg PO QHS 07/20/19 07/20/19 Unknown History Sitagliptin Phos/Metformin HCl 500 mg PO DAILY 07/20/19 07/20/19 Unknown History [Janumet XR 50-500 mg] lisinopriL [Zestril TAB] 10 mg PO QDAY 07/20/19 07/20/19 Unknown History ED Review of Systems ROS: Stated complaint: PSYCH Other details as noted in HPI <NIDA REDMOND - Last Filed: 07/19/19 19:23> ROS: Stated complaint: PSYCH Other details as noted in HPI Comment: All other systems reviewed and negative Constitutional: denies: chills, fever Eyes: denies: eye pain, vision change ENT: denies: ear pain, throat pain Respiratory: denies: cough, shortness of breath Cardiovascular: denies: chest pain, palpitations Gastrointestinal: denies: abdominal pain, vomiting Genitourinary: denies: dysuria, discharge Musculoskeletal: denies: joint swelling, arthralgia Skin: denies: rash, lesions Neurological: denies: headache, weakness Psychiatric: denies: homicidal thoughts, suicidal thoughts <ADONIS PARRA - Last Filed: 07/20/19 06:12> Physical Exam - Physical Exam Vital Signs: Vital Signs 07/19/19 13:42 Temperature 98.2 F Pulse Rate 112 H Respiratory 18 Rate Blood Pressure 118/84 [Left] O2 Sat by Pulse 100 Oximetry <NIDA REDMOND. - Last Filed: 07/19/19 19:23> - Physical Exam Physical Exam: GENERAL: The patient is well-developed well-nourished. HENT: Normocephalic. Atraumatic. Patient has moist mucous membranes. EYES: Extraocular motions are intact. NECK: Supple. Trachea is midline. CHEST/LUNGS: Clear to auscultation. There is no respiratory distress noted. HEART/CARDIOVASCULAR: Regular. There is no tachycardia. ABDOMEN: Abdomen is soft, nontender. Patient has normal bowel sounds. SKIN: Skin is warm and dry. NEURO: The patient is awake, alert, and oriented. The patient is cooperative. The patient has no focal neurologic deficits. Normal speech. MUSCULOSKELETAL: There is no tenderness or deformity. There is no evidence of acute injury. <ADONIS PARRA - Last Filed: 07/20/19 06:12> ED Course Vital Signs 07/19/19 13:42 Temperature 98.2 F Pulse Rate 112 H Respiratory 18 Rate Blood Pressure 118/84 [Left] O2 Sat by Pulse 100 Oximetry <NIDA REDMOND - Last Filed: 07/19/19 19:23> ED Medical Decision Making - Lab Data Result diagrams: 07/19/19 13:54 07/19/19 13:54 - Medical Decision Making Pt accepted upstairs on Psych Floor by Dr Cooper. Will d/c from the ED. <NIDA REDMOND - Last Filed: 07/19/19 19:23> - Lab Data Result diagrams: 07/19/19 13:54 07/19/19 13:54 - Medical Decision Making This patient presents for what appears to be a mental health evaluation. She appears to have some delusions regarding a visit to a different hospital facility yesterday in which she thinks that they were using sound to try and induce a heart attack. Otherwise, the patient is calm and appropriate here. She is alert and oriented to person, place and time. Apparently, per EMS, the feels that she has had some odd behavior recently. Patient denies any suicidal or homicidal ideations. Patient's labs shows some hyperglycemia of 296. There is no elevated anion gap and the patient does not appear to be in diabetic ketoacidosis. Patient also has slightly elevated potassium level of 5.4. She was given a low dose of Kayexalate, that along with the subcutaneous insulin, will bring her potassium down within normal limits. The patient's urine drug screen was positive for phencyclidine. This is more likely to be secondary to 1 of her other home medications than actual abuse of PCP, and the patient certainly does not appear consistent with any acute PCP intoxication. The patient will be seen by the psychiatric team for assistance in disposition planning. After receiving the insulin and Kayexalate, the patient should be considered medically cleared for psychiatric placement. <ADONIS PARRA - Last Filed: 07/20/19 06:12> Critical care attestation.: If time is entered above; I have spent that time in minutes in the direct care of this critically ill patient, excluding procedure time. <NIDA REDMOND - Last Filed: 07/19/19 19:23> Critical Care Time: No Critical care attestation.: If time is entered above; I have spent that time in minutes in the direct care of this critically ill patient, excluding procedure time. <ADONIS PARRA - Last Filed: 07/20/19 06:12> ED Disposition Is pt being admited?: No Time of Disposition: 19:24 <NIDA REDMOND - Last Filed: 07/19/19 19:23> Is pt being admited?: No <ADONIS PARRA - Last Filed: 07/20/19 06:12> Clinical Impression: Psychosis Qualifiers: Psychosis type: unspecified psychosis type Qualified Code(s): F29 - Unspecified psychosis not due to a substance or known physiological condition Disposition: DC-01 TO HOME OR SELFCARE Condition: Stable Referrals: PRIMARY CARE,MD [Primary Care Provider] - 3-5 Days
[2019-07-19 14:19] LABS: Basophils # (Auto) 0.1 K/mm3 (0.0-0.1); Basophils % (Auto) 1.2 % (0.0-1.8); Eosinophils # (Auto) 0.2 K/mm3 (0.0-0.4); Eosinophils % (Auto) 3.5 % (0.0-4.3); Hematocrit 32.9 % (30.3-42.9); Hemoglobin 10.4 gm/dl (10.1-14.3); Lymphocytes # (Auto) 1.9 K/mm3 (1.2-5.4); Lymphocytes % (Auto) 29.2 % (13.4-35.0); Mean Corpuscular HGB Conc 32 % (30-34); Mean Corpuscular Volume 72 fl (79-97); Monocytes # (Auto) 0.4 K/mm3 (0.0-0.8); Monocytes % (Auto) 6.1 % (0.0-7.3); Platelet Count 485 K/mm3 (140-440); Red Blood Count 4.54 M/mm3 (3.65-5.03); Red Cell Distribution Width 15.9 % (13.2-15.2)
[2019-07-19 14:36] LABS: Alanine Aminotransferase 17 units/L (7-56); Albumin 4.5 g/dL (3.9-5); BUN/Creatinine Ratio 25; Blood Urea Nitrogen 30 mg/dL (7-17); Calcium 9.9 mg/dL (8.4-10.2); Hemolysis Index 2
[2019-07-19] MEDS ORDERED: INSULIN REGULAR, HUMAN 100 UNITS/1 ML SUB-Q ONE (14:40)
[2019-07-19 14:43] LABS: Bilirubin,Urine NEG (Negative); Blood,Urine NEG (Negative); Color,Urine Yellow (Yellow); Hyaline Casts,Urine 11 /LPF; Mucus,Urine FEW /HPF
[2019-07-19 14:48] LABS: Amphetamine Screen,Urine PRESUMPTIVE NEGATIVE; Benzodiazepines Screen,Urine PRESUMPTIVE NEGATIVE; Cannabinoid Screen,Urine PRESUMPTIVE NEGATIVE; Cocaine Screen,Urine PRESUMPTIVE NEGATIVE; Methadone Screen,Urine PRESUMPTIVE NEGATIVE; Opiate Screen,Urine PRESUMPTIVE NEGATIVE
[2019-07-19] MEDS ORDERED: SODIUM POLYSTYRENE 15 GM/60 ML ORAL LIQD PO ONE (14:59)
[2019-07-19 15:29] VITALS: BP 118/84
== END 2019-07-19 19:28 | disposition home or self-care (01) ==
LOC: ED 13:25
DX: F29 Unspecified psychosis not due to a substance or known physiological condition (principal); I11.0 Hypertensive heart disease with heart failure; I50.9 Heart failure, unspecified; E11.9 Type 2 diabetes mellitus without complications; F32.9 Major depressive disorder, single episode, unspecified; E78.5 Hyperlipidemia, unspecified; F31.9 Bipolar disorder, unspecified; F25.9 Schizoaffective disorder, unspecified
CPT/HCPCS: 36415; 80053; 80307; 80320; 81001; 85025; G0480; J1815

== ENCOUNTER 2019-11-06 15:09 | Emergency (ER) | payer MEDICARE ==
--- NOTE | 2019-11-06 16:11 | XRay Report ---
CHEST 1 VIEW INDICATION: Chest Pain COMPARISON: 07/09/2018 FINDINGS: SUPPORT DEVICES: None. HEART / MEDIASTINUM: No significant abnormality. LUNGS / PLEURA: Ill-defined parenchymal changes right upper lobe. No pneumothorax. ADDITIONAL FINDINGS: IMPRESSION: 1. Minimum parenchymal changes right upper lobe, mild inflammatory process should be considered Signer Name: Maurisio Adams MD Signed: 11/06/2019 4:07 PM Workstation Name: [id number]
[2019-11-06 16:35] LABS: Basophils # (Auto) 0.1 K/mm3 (0.0-0.1); Basophils % (Auto) 0.9 % (0.0-1.8); Eosinophils # (Auto) 0.2 K/mm3 (0.0-0.4); Eosinophils % (Auto) 2.7 % (0.0-4.3); Hematocrit 27.7 % (30.3-42.9); Hemoglobin 8.7 gm/dl (10.1-14.3); Lymphocytes # (Auto) 1.9 K/mm3 (1.2-5.4); Lymphocytes % (Auto) 29.8 % (13.4-35.0); Mean Corpuscular HGB Conc 31 % (30-34); Mean Corpuscular Volume 71 fl (79-97); Monocytes # (Auto) 0.6 K/mm3 (0.0-0.8); Monocytes % (Auto) 8.7 % (0.0-7.3); Platelet Count 424 K/mm3 (140-440); Red Blood Count 3.91 M/mm3 (3.65-5.03)
[2019-11-06 16:48] LABS: BUN/Creatinine Ratio 19; Blood Urea Nitrogen 19 mg/dL (7-17); Calcium 8.9 mg/dL (8.4-10.2); Hemolysis Index 3
[2019-11-06 20:59] VITALS: BP 185/82
--- NOTE | 2019-11-06 21:08 | Emergency Department Report ---
ED Chest Pain HPI - General Chief Complaint: Chest Pain Stated Complaint: SOB PUI?: No Time Seen by Provider: 11/06/19 20:50 Source: patient, EMS Mode of arrival: Ambulatory Limitations: No Limitations - History of Present Illness Initial Comments: Mrs. Patel is a 49 yo female with hx of hypertension, diabetes mellitus, CVA, dyslipidemia, TIA, paranoid schizophrenia who presents with chest pain since this afternoon. She has sharp pain radiating to her left arm. Pain relieved with nitroglycerin. Pain was not associated with exertion. She denies leg pain. No history of heart disease. She arrived via EMS. She did have associated shortness of breath. Currently she is pain-free. MD Complaint: chest pain -: Gradual, This afternoon Onset: during rest Pain Location: substernal Pain Radiation: LUE Severity: mild Severity scale (0 -10): 0 Quality: sharp Consistency: now resolved Improves With: nitroglycerin Worsens With: nothing re: dyspnea Treatments Prior to Arrival: aspirin, nitroglycerin - Related Data Home Medications Medication Instructions Recorded Confirmed Last Taken Benztropine Mesylate 2 mg PO DAILY 05/25/18 07/20/19 3 Days Ago ~07/16/19 Glimepiride 4 mg PO BID 05/25/18 07/20/19 3 Days Ago ~07/16/19 Januvia 100 mg PO QDAY 05/25/18 07/20/19 3 Days Ago ~07/16/19 Vitamin D3 10,000 unit 50,000 units PO 1XW 05/25/18 07/20/19 3 Days Ago ~07/16/19 Sitagliptin Phos/Metformin HCl 1 each PO DAILY 10/12/18 07/20/19 3 Days Ago [Janumet 50-500 mg Tablet] ~07/16/19 Aspirin EC [Ecotrin] 325 mg PO QDAY 07/20/19 07/20/19 Unknown Metformin HCl ER 500 mg PO DAILY 07/20/19 07/20/19 Unknown Metformin HCl [Metformin HCl ER] 1,000 mg PO QHS 07/20/19 07/20/19 Unknown Sitagliptin Phos/Metformin HCl 500 mg PO DAILY 07/20/19 07/20/19 Unknown [Janumet XR 50-500 mg] lisinopriL [Zestril TAB] 10 mg PO QDAY 07/20/19 07/20/19 Unknown Previous Rx's Medication Instructions Recorded Last Taken Type Ergocalciferol [Vitamin D2] 50,000 unit PO We capsule 07/12/18 3 Days Ago Rx ~07/16/19 Ferrous Sulfate [Feosol 325 MG tab] 325 mg PO DAILY tablet 07/12/18 3 Days Ago Rx ~07/16/19 Thiothixene 5 mg PO QPM 07/12/18 Unknown Rx AtorvaSTATin [Lipitor] 20 mg PO QHS #30 tablet 10/15/18 3 Days Ago Rx ~07/16/19 Benztropine [Cogentin] 2 mg PO QHS #30 tablet 10/15/18 3 Days Ago Rx ~07/16/19 Gabapentin 300 mg PO BID #60 capsule 10/15/18 3 Days Ago Rx ~07/16/19 Metoprolol [Lopressor TAB] 12.5 mg PO BID #60 tablet 10/15/18 3 Days Ago Rx ~07/16/19 Venlafaxine Xr [Effexor XR] 150 mg PO BID #60 capsule 10/15/18 3 Days Ago Rx ~07/16/19 Insulin Regular, Human [HumuLIN R] 0 units SUB-Q ACHS units 07/24/19 Unknown Rx Melatonin [Melatonin 5MG TAB] 10 mg PO QHS #30 tablet 07/24/19 Unknown Rx haloperidoL [Haldol] 5 mg PO BID #60 tablet 07/24/19 Unknown Rx traZODone [Desyrel] 50 mg PO QHS #30 tablet 07/24/19 Unknown Rx Allergies Allergy/AdvReac Type Severity Reaction Status Date / Time No Known Allergies Allergy Verified 05/25/18 00:36 Heart Score - HEART Score History: Slightly suspicious EKG: Normal Age: 45-65 Risk factors: > 3 risk factors or hx of atherosclerotic disease Troponin: < normal limit HEART Score: 3 ED Review of Systems ROS: Stated complaint: SOB Other details as noted in HPI Comment: All other systems reviewed and negative Constitutional: denies: fever, malaise Respiratory: shortness of breath. denies: cough Cardiovascular: chest pain ED Past Medical Hx - Past Medical History Previous Medical History?: Yes Hx Hypertension: Yes Hx Congestive Heart Failure: No Hx Diabetes: Yes Hx Seizures: No Hx Psychiatric Treatment: (Schizo effective, manic depression, anxiety, bipolar) Hx Asthma: No Hx COPD: No Hx Tuberculosis: No Hx HIV: No Additional medical history: depression, Hyperlipidemia, anemia, neuropathy - Surgical History Past Surgical History?: No Hx Coronary Stent: (ams) Hx Open Heart Surgery: (ams) Hx Pacemaker: (ams) Hx Internal Defibrillator: (ams) Hx Cholecystectomy: Yes (ams) Hx Appendectomy: (ams) Hx Breast Surgery: (ams) Additional Surgical History: hyesterectomy - Social History Smoking Status: Never Smoker Substance Use Type: None - Medications Home Medications: Home Medications Medication Instructions Recorded Confirmed Last Taken Type Benztropine Mesylate 2 mg PO DAILY 05/25/18 07/20/19 3 Days Ago History ~07/16/19 Glimepiride 4 mg PO BID 05/25/18 07/20/19 3 Days Ago History ~07/16/19 Januvia 100 mg PO QDAY 05/25/18 07/20/19 3 Days Ago History ~07/16/19 Vitamin D3 10,000 unit 50,000 units PO 1XW 05/25/18 07/20/19 3 Days Ago History ~07/16/19 Ergocalciferol [Vitamin D2] 50,000 unit PO We capsule 07/12/18 07/20/19 3 Days Ago Rx ~07/16/19 Ferrous Sulfate [Feosol 325 MG tab] 325 mg PO DAILY tablet 07/12/18 07/20/19 3 Days Ago Rx ~07/16/19 Thiothixene 5 mg PO QPM 07/12/18 07/20/19 Unknown Rx Sitagliptin Phos/Metformin HCl 1 each PO DAILY 10/12/18 07/20/19 3 Days Ago Hi story [Janumet 50-500 mg Tablet] ~07/16/19 AtorvaSTATin [Lipitor] 20 mg PO QHS #30 tablet 10/15/18 07/20/19 3 Days Ago Rx ~07/16/19 Benztropine [Cogentin] 2 mg PO QHS #30 tablet 10/15/18 07/20/19 3 Days Ago Rx ~07/16/19 Gabapentin 300 mg PO BID #60 capsule 10/15/18 07/20/19 3 Days Ago Rx ~07/16/19 Metoprolol [Lopressor TAB] 12.5 mg PO BID #60 tablet 10/15/18 07/20/19 3 Days Ago Rx ~07/16/19 Venlafaxine Xr [Effexor XR] 150 mg PO BID #60 capsule 10/15/18 07/20/19 3 Days Ago Rx ~07/16/19 Aspirin EC [Ecotrin] 325 mg PO QDAY 07/20/19 07/20/19 Unknown History Metformin HCl ER 500 mg PO DAILY 07/20/19 07/20/19 Unknown History Metformin HCl [Metformin HCl ER] 1,000 mg PO QHS 07/20/19 07/20/19 Unknown History Sitagliptin Phos/Metformin HCl 500 mg PO DAILY 07/20/19 07/20/19 Unknown History [Janumet XR 50-500 mg] lisinopriL [Zestril TAB] 10 mg PO QDAY 07/20/19 07/20/19 Unknown History Insulin Regular, Human [HumuLIN R] 0 units SUB-Q ACHS units 07/24/19 Unknown Rx Melatonin [Melatonin 5MG TAB] 10 mg PO QHS #30 tablet 07/24/19 Unknown Rx haloperidoL [Haldol] 5 mg PO BID #60 tablet 07/24/19 Unknown Rx traZODone [Desyrel] 50 mg PO QHS #30 tablet 07/24/19 Unknown Rx ED Physical Exam - General Limitations: No Limitations General appearance: alert, in no apparent distress - Head Head exam: Present: atraumatic, normocephalic - Eye Eye exam: Present: normal appearance - ENT ENT exam: Present: mucous membranes moist - Neck Neck exam: Present: normal inspection, full ROM - Respiratory Respiratory exam: Present: normal lung sounds bilaterally. Absent: respiratory distress, wheezes, rales, rhonchi - Cardiovascular Cardiovascular Exam: Present: regular rate, normal rhythm, normal heart sounds. Absent: systolic murmur, diastolic murmur, rubs, gallop - GI/Abdominal GI/Abdominal exam: Present: soft, normal bowel sounds. Absent: distended, tenderness, guarding, rebound - Extremities Exam Extremities exam: Present: normal inspection - Neurological Exam Neurological exam: Present: alert, oriented X3 - Psychiatric Psychiatric exam: Present: normal affect, normal mood - Skin Skin exam: Present: warm, dry, intact, normal color. Absent: rash ED Course Vital Signs 11/06/19 11/06/19 15:25 20:58 Temperature 98.2 F Pulse Rate 113 H 98 H Respiratory 20 18 Rate Blood Pressure 144/105 Blood Pressure 185/82 [Left] O2 Sat by Pulse 100 100 Oximetry ED Medical Decision Making - Lab Data Result diagrams: 11/06/19 15:39 11/06/19 15:39 Laboratory Results - last 24 hr 11/06/19 11/06/19 11/06/19 15:39 15:39 19:40 WBC 6.4 RBC 3.91 Hgb 8.7 L Hct 27.7 L MCV 71 L MCH 22 L MCHC 31 RDW 16.0 H Plt Count 424 Lymph % (Auto) 29.8 [place] % (Auto) 8.7 H Eos % (Auto) 2.7 Baso % (Auto) 0.9 Lymph # 1.9 [place] # 0.6 Eos # 0.2 Baso # 0.1 Seg Neutrophils % 57.9 Seg Neutrophils # 3.7 Sodium 131 L Potassium 5.7 H Chloride 97.3 L Carbon Dioxide 22 Anion Gap 17 BUN 19 H Creatinine 1.0 Estimated GFR > 60 BUN/Creatinine Ratio 19 Glucose 119 H Calcium 8.9 Troponin T < 0.010 < 0.010 - EKG Data -: EKG Interpreted by [place] EKG shows normal: sinus rhythm, axis, intervals, QRS complexes, ST-T waves Rate: normal - EKG Data Interpretation: no acute changes 11/06/19 21:03 EKG obtained 1518 Interpreted by sd normal sinus rhythm rate 95 bpm normal axis normal intervals no ST elevation - Radiology Data Radiology results: report reviewed Minimal upper lobe scarring versus infiltrate according to radiology report chest radiograph - Medical Decision Making 1. Ms. Russell presents via EMS for atypical chest pain for ACS. Heart score 3. She currently is pain-free. I do not suspect acute coronary syndrome. Acute myocardial infarction has been ruled out with troponin x2. Without persistent pain I do not suspect pulmonary embolism, aortic dissection, pericarditis. I reviewed radiology impression: I do not suspect pneumonia from this presentation. Referral was sent to [facility] to arrange outpatient cardiac evaluation. Patient dc'd home 2. Asymptomatic hyponatremia exhibited to psychotropic medications. No action needed at this time. 3. Hyperkalemia suspected hemolysis with normal kidney function normal GFR Critical care attestation.: If time is entered above; I have spent that time in minutes in the direct care of this critically ill patient, excluding procedure time. ED Disposition Clinical Impression: Chest pain Disposition: DC-01 TO HOME OR SELFCARE Is pt being admited?: No Does the pt Need Aspirin: No Condition: Stable Instructions: Chest Pain (ED) Referrals: FERNANDEZ KENNEY MD [Primary Care Provider] - 3-5 Days ALRIEZA COVINGTON MD [Staff Physician] - 3-5 Days
== END 2019-11-06 21:45 | disposition home or self-care (01) ==
LOC: ED 15:09
DX: R07.89 Other chest pain (principal); I10 Essential (primary) hypertension; F25.0 Schizoaffective disorder, bipolar type; F41.9 Anxiety disorder, unspecified; Z79.82 Long term (current) use of aspirin; Z79.4 Long term (current) use of insulin; Z79.1 Long term (current) use of non-steroidal anti-inflammatories (NSAID); Z79.2 Long term (current) use of antibiotics; Z79.899 Other long term (current) drug therapy; Z90.49 Acquired absence of other specified parts of digestive tract; Z90.710 Acquired absence of both cervix and uterus; Z98.890 Other specified postprocedural states
CPT/HCPCS: 36415; 71046; 80048; 84484; 85025; 93005

== ENCOUNTER 2020-02-01 17:09 | Emergency (ER) | payer MEDICARE ==
--- NOTE | 2020-02-01 17:44 | Emergency Department Report ---
<MILI DE ANDA - Last Filed: 02/01/20 17:39> ED Psych HPI - General Chief Complaint: Psych Stated Complaint: SUICIDAL Time Seen by Provider: 02/01/20 17:29 Source: EMS Mode of arrival: Ambulatory - History of Present Illness Initial Comments: Patient is 49 years old female with history of schizoaffective disorder, hypertension and diabetes and chronic back pain. Patient presented to the ER complaining of suicidal ideation. Patient is tearful stating that if she would have a gun she would be by now. Patient stated that the reason for her depression and suicidal ideation is because of chronic back pain. Patient denied any auditory or visual hallucination. No homicidal ideation. MD Complaint: suicidal ideation, feels depressed Associated Psychiatric Symptoms: depression, suicidal ideation If Self Harm: admits thoughts of, has plan, self-inflicted trauma - Related Data Home Medications Medication Instructions Recorded Confirmed Last Taken Aspirin EC [Ecotrin] 325 mg PO QDAY 07/20/19 02/02/20 Unknown Metformin HCl [Metformin HCl ER] 1,000 mg PO QHS 07/20/19 02/02/20 Unknown Sitagliptin Phos/Metformin HCl 500 mg PO DAILY 07/20/19 02/02/20 Unknown [Janumet XR 50-500 mg] lisinopriL [Zestril TAB] 10 mg PO QDAY 07/20/19 02/02/20 Unknown ARIPiprazole [Abilify] 20 mg PO DAILY 02/02/20 02/02/20 Unknown Previous Rx's Medication Instructions Recorded Last Taken Type Venlafaxine [Effexor 25mg tab] 25 mg PO DAILY #30 tablet 02/02/20 Unknown Rx Allergies Allergy/AdvReac Type Severity Reaction Status Date / Time No Known Allergies Allergy Verified 05/25/18 00:36 ED Review of Systems Comment: All other systems reviewed and negative Constitutional: denies: chills, fever ENT: denies: throat pain Respiratory: denies: cough, orthopnea, shortness of breath, SOB with exertion Cardiovascular: denies: chest pain, palpitations Gastrointestinal: denies: abdominal pain, nausea, vomiting, diarrhea, constipation, hematemesis, melena Genitourinary: denies: urgency Musculoskeletal: back pain Neurological: denies: headache, weakness, numbness, paresthesias, confusion, abnormal gait Psychiatric: depression, suicidal thoughts. denies: auditory hallucinations, visual hallucinations, homicidal thoughts ED Past Medical Hx - Past Medical History Hx Hypertension: Yes Hx Congestive Heart Failure: No Hx Diabetes: Yes Hx Seizures: No Hx Psychiatric Treatment: (Schizo effective, manic depression, anxiety, bi polar) Hx Asthma: No Hx COPD: No Hx Tuberculosis: No Hx HIV: No Additional medical history: depression, Hyperlipidemia, anemia, neuropathy - Surgical History Hx Coronary Stent: (ams) Hx Open Heart Surgery: (ams) Hx Pacemaker: (ams) Hx Internal Defibrillator: (ams) Hx Cholecystectomy: Yes (ams) Hx Appendectomy: (ams) Hx Breast Surgery: (ams) Additional Surgical History: hyesterectomy - Social History Smoking Status: Never Smoker - Medications Home Medications: Home Medications Medication Instructions Recorded Confirmed Last Taken Type Aspirin EC [Ecotrin] 325 mg PO QDAY 07/20/19 02/02/20 Unknown History Metformin HCl [Metformin HCl ER] 1,000 mg PO QHS 07/20/19 02/02/20 Unknown History Sitagliptin Phos/Metformin HCl 500 mg PO DAILY 07/20/19 02/02/20 Unknown History [Janumet XR 50-500 mg] lisinopriL [Zestril TAB] 10 mg PO QDAY 07/20/19 02/02/20 Unknown History ARIPiprazole [Abilify] 20 mg PO DAILY 02/02/20 02/02/20 Unknown History Venlafaxine [Effexor 25mg tab] 25 mg PO DAILY #30 tablet 02/02/20 Unknown Rx ED Physical Exam - General Limitations: No Limitations General appearance: alert, in no apparent distress, anxious - Head Head exam: Present: atraumatic, normocephalic, normal inspection - Eye Eye exam: Present: normal appearance, PERRL - ENT ENT exam: Present: normal exam, normal orophraynx, mucous membranes moist - Neck Neck exam: Present: normal inspection, full ROM. Absent: tenderness, meningismus - Respiratory Respiratory exam: Present: normal lung sounds bilaterally - Cardiovascular Cardiovascular Exam: Present: regular rate, normal rhythm, normal heart sounds - GI/Abdominal GI/Abdominal exam: Present: soft, normal bowel sounds. Absent: distended, tenderness, guarding, rebound, rigid, organomegaly, mass, bruit, pulsatile mass, hernia - Extremities Exam Extremities exam: Present: normal inspection, full ROM, normal capillary refill. Absent: pedal edema, calf tenderness - Back Exam Back exam: Present: normal inspection, full ROM. Absent: CVA tenderness (R), CVA tenderness (L) - Neurological Exam Neurological exam: Present: alert, oriented X3, CN II-XII intact, normal gait, reflexes normal - Psychiatric Psychiatric exam: Present: depressed, suicidal ideation. Absent: agitated, a nxious, flat affect, manic, homicidal ideation - Skin Skin exam: Present: warm, intact, normal color ED Disposition Clinical Impression: Depression, Chronic pain Disposition: DC-01 TO HOME OR SELFCARE Condition: Stable Instructions: Major Depressive Disorder, Adult, Chronic Pain, Adult Additional Instructions: Professional and Agency Contacts To help Resolve Crises(15/10) OR Crisis Line: Suicide Prevention Line: Crisis Text Line: Text START to [phone] Emergency: 911 Outpatient [facility] Behavioral Health Resources: [facility]: [facility] [address] [place], [place] [address] [facility] - [address] [place] [address] Saturday thru Saturday - 8am - 5pm [facility]: [facility] Address: [address] [place] [address] Saturday thru Saturday- 7am-2pm [facility] Address: [address] [place] [address] Saturday thru Saturday: 8:30AM-5PM OUTPATIENT MENTAL HEALTH RESOURCES [facility], [facility] Rosenda Goodiwn MD: [address] [place] [address] [place] [address] [facility]: [facility] [address] [place] [address] [place] [address] [phone] [facility]: [facility] Healthcare: [address] [place] [address] [address] [facility] [address] [facility] [address] [facility]: Oscar Calvillo MD: [address] [facility] [address] [facility] [id number] [facility]: [address] [place] [address] [phone] OR CRISIS AND ACCESS LINE: Prescriptions: Venlafaxine [Effexor 25mg tab] 25 mg PO DAILY #30 tablet Referrals: JESSICA ARMSTRONG MD [Primary Care Provider] - 3-5 Days [facility] [Provider Group] - 3-5 Days STANLEY TINOCO MD [Staff Physician] - 3-5 Days <IVÁN NOVAK - Last Filed: 02/02/20 11:30> ED Review of Systems ROS: Stated complaint: SUICIDAL Other details as noted in HPI ED Course Vital Signs 02/01/20 02/01/20 02/02/20 17:29 19:25 02:00 Temperature 98.3 F 97.7 F 98.1 F Pulse Rate 80 115 H 105 H Respiratory 18 16 16 Rate Blood Pressure 136/88 140/94 151/65 [Left] O2 Sat by Pulse 96 100 100 Oximetry 02/02/20 02/02/20 07:55 08:36 Temperature 98.1 F Pulse Rate 108 H Respiratory 18 18 Rate Blood Pressure 132/87 [Left] O2 Sat by Pulse 100 100 Oximetry ED Medical Decision Making - Lab Data Result diagrams: 02/01/20 17:52 02/01/20 17:52 - Medical Decision Making as per MH: Assessment and Plan Major Depressive Disorder TREATMENT PLAN d/c 1013 Venlafaxine 25mg po daily Continue home abilify Keep appointment for tomorrow Sitter: Defer to primary Medical: Per primary Disposition: Do not recommend acute inpatient psychiatric treatment. The patient understands that if any fear or feelings of endangerment are to arise she is to seek immediate assistance including but not limited to the crisis hotline, 911, and ER. The nurse assessor is to give the patient referrals for outpatient psych, and cognitive behavioral therapy The patient is to follow up with outpatient psych in 7 to 14 days upon discharge The nurse assessor is further discuss the safety plan Will sign off. Thank you for this consult pt will be discharged. pt is a diabetic, no meds given overnight, metformin provided prior to d/c for mild hyperglycemia with glucose less than 300 Critical care attestation.: If time is entered above; I have spent that time in minutes in the direct care of this critically ill patient, excluding procedure time. ED Disposition Is pt being admited?: No Does the pt Need Aspirin: No Time of Disposition: 11:29
[2020-02-01 18:05] LABS: Basophils # (Auto) 0.1 K/mm3 (0.0-0.1); Eosinophils # (Auto) 0.2 K/mm3 (0.0-0.4); Eosinophils % (Auto) 2.7 % (0.0-4.3); Hematocrit 30.6 % (30.3-42.9); Hemoglobin 9.4 gm/dl (10.1-14.3); Lymphocytes # (Auto) 1.7 K/mm3 (1.2-5.4); Lymphocytes % (Auto) 29.6 % (13.4-35.0); Mean Corpuscular HGB Conc 31 % (30-34); Mean Corpuscular Volume 74 fl (79-97); Monocytes # (Auto) 0.4 K/mm3 (0.0-0.8); Monocytes % (Auto) 6.6 % (0.0-7.3); Platelet Count 410 K/mm3 (140-440); Red Blood Count 4.15 M/mm3 (3.65-5.03); Red Cell Distribution Width 16.7 % (13.2-15.2)
[2020-02-01 18:23] LABS: Calcium 9.1 mg/dL (8.4-10.2)
[2020-02-02 07:56] VITALS: BP 132/87
--- NOTE | 2020-02-02 10:27 | Consultation ---
History of Present Illness - Reason for Consult Consult date: 02/02/20 Reason for consult: SI - History of Present Psychiatric Illness Ebony Patel is a 49y/o female patient who presented with SI due to chronic back pain. During my interview with the patient she states "yesterday I was have bad back pain, and I told my grandkids that. They called 911." She says, "I'm fine now. I've never tried to hurt myself. I talk like that when I get upset or hurt." She says you can call my family, "they'll tell you I've never hurt myself." The patient is lucid, a/x x 3. She is calm and cooperative. She denies hallucinations of any kind. The patient says "I already have an appointment for tomorrow." She says "please don't sent me to a facility. I'm fine at home, that will make me worse." She denies any illicit drug use, alcohol or nicotine. She says she normally takes "abilify and effexor." The patient says "but I guess the doctor must have stopped giving me the venlafaxine because it wasn't at the pharmacy." She describes her mood as "alright, better if I was at home." I spoke with the patient's spouse and daughter in debt. They both said the patient has never been a threat to herself. The spouse says she has never attempt to harm herself, but does says that when she gets upset or is hurting. He says he lost his job and the patient was upset about that. But he says I can get social security so she was worried about it more than I was. He says but she's not a threat to herself. He says that he prefers the patient discharge back home in his care. He says he can handle her and has no fear or reservations of the patient being released to come home. The nurse caring for the patient states she has been calm, and cooperative. States she has denies SI/HI and A/V hallucinations. The patient's medical record was reviewed. PAST PSYCHIATRIC HISTORY: Diagnoses: Schizophrenia Suicide attempts or Self-harm behavior: Denies Prior psychiatric hospitalizations: Yes Substance Abuse history: Denies Previous psychiatric medications tried: Abilify, venlafaxine Outpatient treatment: Not currently PAST MEDICAL HISTORY: None reported Family Psychiatric History None reported SOCIAL HISTORY Marital Status: Common law Living Arrangements: family Employment Status: Disabled Access to guns/weapons: Denied Education: Associates History of Abuse: Denies Legal History: Denies ROS: Constitutional: Negative for weight loss ENT: Negative for stridor Respiratory: Negative for cough or hemoptysis All other systems reviewed and are negative MENTAL STATUS EXAMINATION General Appearance and Behavior: Age appropriate, fair hygiene, wearing appropriate clothes, good eye contact, cooperative, polite with questioning. Cooperation: Participating Psychomotor Behavior: Normal Mood: "alright" Affect and affective range: Congruent with stated mood Thought Process: Goal directed Thought Content: None Speech: Normal volume, Regular rate and rhythm Suicidal Ideation: Denies Homicidal Ideation: Denies Hallucinations: Denies Delusions: None elicited Impulse Control: Normal Insight and Judgment: Normal Memory/Cognition: Normal Orientation: Alert, oriented Assessment and Plan Major Depressive Disorder TREATMENT PLAN d/c 1013 Venlafaxine 25mg po daily Continue home jj Keep appointment for tomorrow Sitter: Defer to primary Medical: Per primary Disposition: Do not recommend acute inpatient psychiatric treatment. The patient understands that if any fear or feelings of endangerment are to arise she is to seek immediate assistance including but not limited to the crisis hotline, 911, and ER. The hospital receptionist is to give the patient referrals for outpatient psych, and cognitive behavioral therapy The patient is to follow up with outpatient psych in 7 to 14 days upon discharge The hospital receptionist is further discuss the safety plan Will sign off. Thank you for this consult Medications and Allergies Allergies Allergy/AdvReac Type Severity Reaction Status Date / Time No Known Allergies Allergy Verified 05/25/18 00:36 Home Medications Medication Instructions Recorded Confirmed Last Taken Type Aspirin EC [Ecotrin] 325 mg PO QDAY 07/20/19 02/02/20 Unknown History Metformin HCl [Metformin HCl ER] 1,000 mg PO QHS 07/20/19 02/02/20 Unknown History Sitagliptin Phos/Metformin HCl 500 mg PO DAILY 07/20/19 02/02/20 Unknown History [Janumet XR 50-500 mg] lisinopriL [Zestril TAB] 10 mg PO QDAY 07/20/19 02/02/20 Unknown History ARIPiprazole [Abilify] 20 mg PO DAILY 02/02/20 02/02/20 Unknown History Venlafaxine [Effexor 25mg tab] 25 mg PO DAILY #30 tablet 02/02/20 Unknown Rx Mental Status Exam - Vital signs Last Vital Signs Temp 98.1 F 02/02/20 07:55 Pulse 108 H 02/02/20 07:55 Resp 18 02/02/20 08:36 BP 132/87 02/02/20 07:55 Pulse Ox 100 02/02/20 08:36 Results Result Diagrams: 02/01/20 17:52 02/01/20 17:52 Abnormal lab results 02/01/20 02/01/20 02/01/20 Range/Units 17:52 17:52 17:52 Hgb 9.4 L (10.1-14.3) gm/dl MCV 74 L (79-97) fl MCH 23 L (28-32) pg RDW 16.7 H (13.2-15.2) % Sodium 136 L (137-145) mmol/L BUN 23 H (7-17) mg/dL Creatinine 1.4 H (0.6-1.2) mg/dL Glucose 183 H (65-100) mg/dL POC Glucose (70-105) mg/dL Acetaminophen 5.0 L (10.0-30.0) ug/mL 02/02/20 Range/Units 09:59 Hgb (10.1-14.3) gm/dl MCV (79-97) fl MCH (28-32) pg RDW (13.2-15.2) % Sodium (137-145) mmol/L BUN (7-17) mg/dL Creatinine (0.6-1.2) mg/dL Glucose (65-100) mg/dL POC Glucose 269 H (70-105) mg/dL Acetaminophen (10.0-30.0) ug/mL All other labs normal.
[2020-02-02] MEDS ORDERED: metFORMIN 500 MG TAB PO ONE (11:28)
== END 2020-02-02 11:50 | disposition home or self-care (01) ==
LOC: ED 17:09
DX: F32.9 Major depressive disorder, single episode, unspecified (principal); G89.29 Other chronic pain; I10 Essential (primary) hypertension; E11.9 Type 2 diabetes mellitus without complications; F41.9 Anxiety disorder, unspecified; Z90.710 Acquired absence of both cervix and uterus; Z90.49 Acquired absence of other specified parts of digestive tract; Z98.890 Other specified postprocedural states; Z79.899 Other long term (current) drug therapy
CPT/HCPCS: 36415; 80048; 80320; 82962; 84703; 85025; G0480

== ENCOUNTER 2020-05-13 09:11 | Emergency (ER) | payer MEDICARE ==
--- NOTE | 2020-05-13 09:22 | Event Note ---
ED Screening Note Date of service: 05/13/20 ED Screening Note: 49-year-old female with history of diabetes hypertension hyperlipidemia presents with midsternal chest pain that began at rest this morning. Has been constant. No other associated symptoms. Nothing makes worse or better. Normal exam overall. This initial assessment/diagnostic orders/clinical plan/treatment(s) is/are subject to change based on patients health status, clinical progression and re- assessment by fellow clinical providers in the ED. Further treatment and workup at subsequent clinical providers discretion. Patient/guardian urged not to elope from the ED as their condition may be serious if not clinically assessed and managed. Initial orders include: Labs, chest x-ray, EKG
[2020-05-13 09:59] LABS: Basophils % (Auto) 0.6 % (0.0-1.8); Eosinophils # (Auto) 0.1 K/mm3 (0.0-0.4); Eosinophils % (Auto) 2.2 % (0.0-4.3); Hematocrit 28.6 % (30.3-42.9); Hemoglobin 9.6 gm/dl (10.1-14.3); Lymphocytes # (Auto) 1.4 K/mm3 (1.2-5.4); Mean Corpuscular HGB Conc 34 % (30-34); Monocytes # (Auto) 0.3 K/mm3 (0.0-0.8); Monocytes % (Auto) 4.7 % (0.0-7.3); Platelet Count 392 K/mm3 (140-440); Red Blood Count 4.11 M/mm3 (3.65-5.03); Red Cell Distribution Width 16.7 % (13.2-15.2)
[2020-05-13 10:01] LABS: Mean Corpuscular Volume 70 fl (79-97)
[2020-05-13] MEDS ORDERED: ALUM-MAG HYDROXIDE-SIMETHICONE 200-200-20MG/5ML ORAL LIQD 30 ML PO ONE (10:03)
[2020-05-13] MEDS ORDERED: ACETAMINOPHEN 500 MG TAB PO ONE (10:03)
--- NOTE | 2020-05-13 10:13 | XRay Report ---
CHEST 2 VIEWS INDICATION / CLINICAL INFORMATION: cp. COMPARISON: 11/06/2019 FINDINGS: SUPPORT DEVICES: None. HEART / MEDIASTINUM: No significant abnormality. LUNGS / PLEURA: No significant pulmonary or pleural abnormality. No pneumothorax. ADDITIONAL FINDINGS: No significant additional findings. IMPRESSION: 1. No acute findings. Signer Name: Otis Pierre MD Signed: 05/13/2020 10:08 AM Workstation Name: [id number]
--- NOTE | 2020-05-13 10:14 | Emergency Department Report ---
ED Chest Pain HPI - General Chief Complaint: Chest Pain Stated Complaint: CHEST PAIN PUI?: No Time Seen by Provider: 05/13/20 09:56 Source: patient Mode of arrival: Ambulatory Limitations: No Limitations - History of Present Illness Initial Comments: Chief complaint: "I am having chest pain." HPI this is a 49-year-old female with history of schizoaffective disorder, bipolar disorder, hyperlipidemia, anemia, neuropathy, diabetes mellitus, hypertension who presents with chest pain. She awakened this morning with a dull 3-10 chest pain. Pain is persistent. No association with eating exertion inspiration. She denies fever, shortness of breath, cough, back pain. She did not attempt any home medical treatments. Patient does not have a history of cardiac disease. In 2019 according to electronic medical record patient was admitted for unresponsive episode. Patient had CT scan of the brain including MRI of the brain obtained. At that time echocardiogram revealed ejection fraction 50 to 60%. Wall motion contractility within normal limits. Abnormal left ventricular diastolic filling. Patient receives primary care at [facility]. She does not smoke drink or use recreational drugs. MD Complaint: chest pain -: Gradual, This morning Onset: during rest Pain Location: substernal Pain Radiation: none Severity: mild Severity scale (0 -10): 3 Quality: dull Consistency: constant Improves With: nothing Worsens With: nothing Treatments Prior to Arrival: none - Related Data Home Medications Medication Instructions Recorded Confirmed Last Taken Aspirin EC [Ecotrin] 325 mg PO QDAY 07/20/19 02/02/20 Unknown Metformin HCl [Metformin HCl ER] 1,000 mg PO QHS 07/20/19 02/02/20 Unknown Sitagliptin Phos/Metformin HCl 500 mg PO DAILY 07/20/19 02/02/20 Unknown [Janumet XR 50-500 mg] lisinopriL [Zestril TAB] 10 mg PO QDAY 07/20/19 02/02/20 Unknown ARIPiprazole [Abilify] 20 mg PO DAILY 02/02/20 02/02/20 Unknown Previous Rx's Medication Instructions Recorded Last Taken Type Venlafaxine [Effexor 25mg tab] 25 mg PO DAILY #30 tablet 02/02/20 Unknown Rx Famotidine [Acid-Pep] 20 mg PO BID 30 Days #60 tablet 05/13/20 Unknown Rx Allergies Allergy/AdvReac Type Severity Reaction Status Date / Time No Known Allergies Allergy Verified 05/25/18 00:36 Heart Score - HEART Score History: Slightly suspicious EKG: Normal Age: 45-65 Risk factors: > 3 risk factors or hx of atherosclerotic disease Troponin: < normal limit HEART Score: 3 ED Review of Systems ROS: Stated complaint: CHEST PAIN Other details as noted in HPI Comment: All other systems reviewed and negative Constitutional: denies: fever, malaise Respiratory: denies: cough, shortness of breath Cardiovascular: chest pain Gastrointestinal: denies: abdominal pain, nausea, vomiting Neurological: denies: headache ED Past Medical Hx - Past Medical History Previous Medical History?: Yes Hx Hypertension: Yes Hx Congestive Heart Failure: No Hx Diabetes: Yes Hx Seizures: No Hx Psychiatric Treatment: (Schizo effective, manic depression, anxiety, bipolar) Hx Asthma: No Hx COPD: No Hx Tuberculosis: No Hx HIV: No Additional medical history: depression, Hyperlipidemia, anemia, neuropathy - Surgical History Past Surgical History?: Yes Hx Coronary Stent: (ams) Hx Open Heart Surgery: (ams) Hx Pacemaker: (ams) Hx Internal Defibrillator: (ams) Hx Cholecystectomy: Yes Hx Appendectomy: (ams) Hx Breast Surgery: (ams) Additional Surgical History: hyesterectomy - Family History Family history: hypertension - Social History Smoking Status: Never Smoker Substance Use Type: None - Medications Home Medications: Home Medications Medication Instructions Recorded Confirmed Last Taken Type Aspirin EC [Ecotrin] 325 mg PO QDAY 07/20/19 02/02/20 Unknown History Metformin HCl [Metformin HCl ER] 1,000 mg PO QHS 07/20/19 02/02/20 Unknown History Sitagliptin Phos/Metformin HCl 500 mg PO DAILY 07/20/19 02/02/20 Unknown History [Janumet XR 50-500 mg] lisinopriL [Zestril TAB] 10 mg PO QDAY 07/20/19 02/02/20 Unknown History ARIPiprazole [Abilify] 20 mg PO DAILY 02/02/20 02/02/20 Unknown History Venlafaxine [Effexor 25mg tab] 25 mg PO DAILY #30 tablet 02/02/20 Unknown Rx Famotidine [Acid-Pep] 20 mg PO BID 30 Days #60 tablet 05/13/20 Unknown Rx ED Physical Exam - General Limitations: No Limitations General appearance: alert, in no apparent distress - Head Head exam: Present: atraumatic, normocephalic - Eye Eye exam: Present: normal appearance - ENT ENT exam: Present: mucous membranes moist - Neck Neck exam: Present: normal inspection, full ROM - Respiratory Respiratory exam: Present: normal lung sounds bilaterally. Absent: respiratory distress, wheezes, rales, rhonchi - Cardiovascular Cardiovascular Exam: Present: regular rate, normal rhythm, normal heart sounds. Absent: systolic murmur, diastolic murmur, rubs, gallop - GI/Abdominal GI/Abdominal exam: Present: soft, normal bowel sounds. Absent: distended, tenderness, guarding, rebound - Extremities Exam Extremities exam: Present: normal inspection - Neurological Exam Neurological exam: Present: alert, oriented X3 - Psychiatric Psychiatric exam: Present: normal affect, normal mood - Skin Skin exam: Present: warm, dry, intact, normal color. Absent: rash ED Course Vital Signs 05/13/20 05/13/20 09:17 10:21 Temperature 98.9 F Pulse Rate 104 H 89 Respiratory 18 14 Rate Blood Pressure 141/79 Blood Pressure 156/88 [Right] O2 Sat by Pulse 99 100 Oximetry ED Medical Decision Making - Lab Data Result diagrams: 05/13/20 09:51 05/13/20 09:51 Laboratory Results - last 24 hr 05/13/20 05/13/20 05/13/20 09:51 09:51 11:30 WBC 5.5 RBC 4.11 Hgb 9.6 L Hct 28.6 L MCV 70 L MCH 23 L MCHC 34 RDW 16.7 H Plt Count 392 Lymph % (Auto) 26.0 [place] % (Auto) 4.7 Eos % (Auto) 2.2 Baso % (Auto) 0.6 Lymph # (Auto) 1.4 [place] # (Auto) 0.3 Eos # (Auto) 0.1 Baso # (Auto) 0.0 Seg Neutrophils % 66.5 Seg Neutrophils # 3.7 Sodium 137 Potassium 5.3 H Chloride 103.6 Carbon Dioxide 26 Anion Gap 13 BUN 20 H Creatinine 1.1 Estimated GFR > 60 BUN/Creatinine Ratio 18 Glucose 154 H Calcium 8.8 Total Bilirubin < 0.20 AST 10 ALT 8 Alkaline Phosphatase 78 Troponin T < 0.010 < 0.010 Total Protein 6.8 Albumin 4.2 Albumin/Globulin Ratio 1.6 Lipase 33 - EKG Data -: EKG Interpreted by Me EKG shows normal: sinus rhythm, axis, intervals, QRS complexes, ST-T waves Rate: tachycardia - EKG Data When compared to previous EKG there are: no significant change (As compared to EKG obtained 10/12/2018) Interpretation: normal EKG 05/13/20 10:05 EKG obtained 0917 EKG interpreted by md Sinus tachycardia rate 100 bpm normal sinus rhythm normal axis normal intervals no ST elevation no ST-T signs of ischemia normal EKG - Radiology Data Radiology results: report reviewed CHEST 2 VIEWS INDICATION / CLINICAL INFORMATION: cp. COMPARISON: 11/06/2019 FINDINGS: SUPPORT DEVICES: None. HEART / MEDIASTINUM: No significant abnormality. LUNGS / PLEURA: No significant pulmonary or pleural abnormality. No pneumothorax. ADDITIONAL FINDINGS: No significant additional findings. IMPRESSION: 1. No acute findings. - Medical Decision Making Chest pain: Atypical for ACS. Dull. 10 pain. Patient's heart score is 3. I do not feel that patient has emergent condition which would account for her chest pain considerations aortic dissection, pulmonary embolism, pneumothorax. Patient given referral to cardiology. I have faxed referral request form to the [facility] for outpatient cardiac risk ratification. Patient has normal EKG. Patient had normal EKG on previous during previous admission in September 2018. Troponin x2 negative. Patient understands return precautions. She agreed to follow-up with machine hand by making an appointment. . Most likely diagnosis includes GERD versus chest wall pain. I have reviewed labs. Patient has baseline anemia. Troponin x2 -. Suspect hemolyzed potassium with normal kidney function. Critical care attestation.: If time is entered above; I have spent that time in minutes in the direct care of this critically ill patient, excluding procedure time. ED Disposition Clinical Impression: Chest pain, GERD (gastroesophageal reflux disease), Chest wall pain Disposition: -01 TO HOME OR SELFCARE Is pt being admited?: No Does the pt Need Aspirin: No Condition: Stable Instructions: Nonspecific Chest Pain, Adult, [id number], Chest Pain (ED) Prescriptions: Famotidine [Acid-Pep] 20 mg PO BID 30 Days #60 tablet Referrals: ALIREZA COVINGTON MD [Staff Physician] - 3-5 Days
[2020-05-13 10:20] LABS: Alanine Aminotransferase 8 units/L (7-56); Albumin 4.2 g/dL (3.9-5); BUN/Creatinine Ratio 18; Blood Urea Nitrogen 20 mg/dL (7-17); Calcium 8.8 mg/dL (8.4-10.2); Hemolysis Index 0
[2020-05-13 13:16] VITALS: BP 128/78
== END 2020-05-13 13:17 | disposition home or self-care (01) ==
LOC: ED 09:11
DX: K21.9 Gastro-esophageal reflux disease without esophagitis (principal); R07.89 Other chest pain; I10 Essential (primary) hypertension; E11.9 Type 2 diabetes mellitus without complications; F32.9 Major depressive disorder, single episode, unspecified; Z90.710 Acquired absence of both cervix and uterus; Z98.890 Other specified postprocedural states; Z79.899 Other long term (current) drug therapy
CPT/HCPCS: 36415; 71046; 80053; 83690; 84484; 85025; 93005